=== PATIENT | female | born 1970 | race Caucasian/White ===

== ENCOUNTER 2020-03-26 13:47 | Emergency (ER) | payer MEDICARE, MEDICAID, SELFPAY ==
--- NOTE | ~2020-03-26 | XR_ITS ---
EXAMINATION: XR foot RT min 3V DATE: 03/26/2020 14:11 INDICATION: Pain at the right third-fifth toes post injury 2 weeks prior TECHNIQUE: Dorsoplantar, two oblique and lateral views of the right foot were obtained. COMPARISON: None. FINDINGS: Nondisplaced extra-articular fracture across the proximal metadiaphyseal region of the right fifth pr oximal phalanx. Alignment remains essentially anatomic. No other fractures identified. Joint spaces a ppear relatively preserved. Small plantar calcaneal spur. IMPRESSION: 1. Nondisplaced extra articular fracture at the proximal shaft of the right fifth proximal phalanx. Reviewed, dictated and finalized at location A. IMPRESSION: 1. Nondisplaced extra articular fracture at the proximal shaft of the right fif th proximal phalanx.
[2020-03-26 13:58] VITALS: BP 118/88; PULSE 86; RESP 16; TEMP 37.1; O2SAT 99
--- NOTE | 2020-03-26 14:39 | ED.LOWEXIN ---
HPI - Extremity Injury (Lower) General Chief Complaint: Extremity Injury, Lower Stated Complaint: right foot pain Time Seen by Provider: 03/26/20 14:30 Source: patient and RN notes reviewed Mode of arrival: ambulatory Limitations: no limitations History of Present Illness HPI Narrative: Patient presents today complaining of right third through fifth toe pain. 2 weeks ago she kicked something at home and was having pain. 3 days ago she kicked something again on and heard a crack with increased pain. Currently rates her pain 12/09 and has tried no [id number]-[id number] interventions at home prior to arrival. Denies numbness or tingling in the foot or toes. Pain increases with weightbearing. States she is unable to wear shoe due to pain. MD complaint: foot injury Related Data Home Medications Medication Instructions Recorded Confirmed amitriptyline 25 mg tablet 25 mg PO ONCE 04/07/19 03/26/20 cetirizine 10 mg capsule 10 mg PO DAILY 04/07/19 03/26/20 mometasone 50 mcg/actuation nasal 2 spray NASAL DAILY 04/07/19 03/26/20 spray topiramate 50 mg tablet 50 mg PO BID 04/07/19 03/26/20 trazodone 50 mg tablet 50 mg PO BID 04/07/19 03/26/20 Allergies Allergy/AdvReac Type Severity Reaction Status Date / Time clavulanic acid Allergy Mild TONGUE Verified 04/09/19 09:04 SWELLING, NAUSEA AND VOMITING coconut Allergy Unknown Hives / Verified 04/09/19 09:04 Red Face Penicillins Allergy Swelling Verified 03/26/20 13:57 of Lip/Tongue/Throat Review of Systems Review of Systems: Narrative: CONSTITUTIONAL: Denies body aches, fever, chills, or sweats. EYES: Denies visual changes, redness, or discharge. ENT: Denies rhinorrhea, congestion, sore throat, or otalgia. CARDIOVASCULAR: Denies chest pain, palpitations, or edema. RESPIRATORY: Denies cough or dyspnea. GASTROINTESTINAL: Denies abdominal pain, nausea, vomiting, or diarrhea. GENITOURINARY: Denies dysuria or hematuria. SKIN: Denies rash, itching, or wounds. MUSCULOSKELETAL: Denies back pain, or myalgia. + Right toe pain and swelling NEUROLOGIC: Denies headache, numbness, tingling, or weakness. PSYCH: Denies depression or anxiety. [facility] Past Medical History Medical History (Updated 03/26/20 @ 14:46 by Brunilda Borges, [employer]INTED [employer]ARD PANELS PLATER, ) Hopper's palsy Migraines PTSD (post-traumatic stress disorder) Surgical History Surgical History (Updated 09/30/19 @ 10:02 by Raul Sampson) H/O sinus surgery Family History Family History (Updated 04/09/18 @ 10:55 by DOCTOR UNKNOWN) Mother Family history of malignant neoplasm of breast in first degree relative Father Malignant neoplasm of prostate Social History Social History (Updated 04/09/19 @ 09:02 by Zaira Orozco, [facility]) Smoking status: Former smoker Comments At time of signature, I have reviewed and agree with nursing past medical, surgical, social and family history unless otherwise noted. Please see nursing chart for further information. There is no relevant family history pertinent to the presenting complaint Exam Narrative: Exam Narrative: GENERAL: Well-appearing, well-nourished, and in no acute distress. HEAD: Normocephalic, atraumatic. EYES: EOMI. No redness or drainage. Conjunctivae normal. ENT: Mucous membranes pink and moist. NECK: Normal AROM. CHEST: No respiratory distress. EXTREMITIES: Tenderness to right toes 3 through 5 with mild edema. Tenderness extends to the distal one third of the metatarsals as well. No tenderness to the remainder of the foot. Distal sensation intact. Capillary refill normal. Pedal pulse normal. Decreased range of motion to affected toes due to pain. SKIN: Warm, dry, no rash. Capillary refill normal. Normal skin turgor. NEURO: No focal deficits. Alert and oriented x3. Guarded gait PSYCH: Normal affect. No signs of depression or anxiety. Course Vital Signs Vital signs: Vital Signs Temperature 98.7 F 03/26/20 13:58 Pulse Rate
== END 2020-03-26 14:53 | disposition home or self-care (01) ==
PROVIDERS: Emergency Provider Nurse Practitioner; PCP Family Medicine
DX: S92.514A Nondisplaced fracture of proximal phalanx of right lesser toe(s), initial encounter for closed fracture (principal); W22.8XXA Striking against or struck by other objects, initial encounter; S90.31XA Contusion of right foot, initial encounter; Z87.891 Personal history of nicotine dependence; F43.10 Post-traumatic stress disorder, unspecified
CPT/HCPCS: 73630; 99214; G0463

== ENCOUNTER 2020-05-30 15:19 | Outpatient (CLI) | payer MEDICARE, MEDICAID, SELFPAY ==
[2020-05-30 16:58] LABS: Alanine Aminotransferase 64 U/L (4-35); Albumin Level 4.3 g/dL (3.5-5.1); Alkaline Phosphatase 92 U/L (38-126); Anion Gap 9 mmol/L (8-16); Aspartate Amino Transferase 33 U/L (14-36); Bilirubin,Total 0.2 mg/dL (0.2-1.3); Blood Urea Nitrogen 13 mg/dL (7-17); Calcium 8.7 mg/dL (8.4-10.2); Carbon Dioxide 22 mmol/L (22-30); Chloride 110 mmol/L (98-107); Cholesterol 274 mg/dL (0-200); Estimated Glomerular Filt Rate 58; Glucose 111 mg/dL (65-105); LDL Cholesterol Direct 112 mg/dL; Potassium 3.8 mmol/L (3.4-5.0); Sodium 141 mmol/L (137-145)
[2020-05-30 17:27] LABS: Triglycerides 945 mg/dL (<150)
== END 2020-05-30 15:20 | disposition home or self-care (01) ==
LOC: ANHLAB 15:21
PROVIDERS: PCP Internal Medicine; Visit Provider Internal Medicine
DX: R53.83 Other fatigue (principal); Z13.6 Encounter for screening for cardiovascular disorders
CPT/HCPCS: 36415; 80053; 80061; 84443

== ENCOUNTER 2020-06-03 10:19 | Outpatient (CLI) | payer MEDICARE, MEDICAID, SELFPAY ==
--- NOTE | ~2020-06-03 | US_ITS ---
EXAMINATION: US right upper quadrant DATE: 06/03/2020 10:47 INDICATION: Right upper quadrant pain TECHNIQUE: Multiple grayscale and Doppler ultrasound images of the abdomen were obtained. COMPARISON: None available FINDINGS: The head and body of the pancreas are normal. The pancreatic tail is obscured by bowel gas. The liver demonstrates increased echogenicity, heterogenous echotexture, and decreased through trans mission. No surface nodularity. Normal hepatopetal flow in the main portal vein. The gallbladder is c ontracted but appears normal with no abnormal wall thickening, pericholecystic fluid or stones. The n ormal common bile duct measures 5 mm. There was no sonographic Burger sign. IMPRESSION: 1. Diffuse hepatic steatosis. Reviewed, dictated and finalized at location A. UNTS OFFICER
== END 2020-06-03 10:20 | disposition home or self-care (01) ==
PROVIDERS: PCP Internal Medicine; Visit Provider Internal Medicine
DX: R10.11 Right upper quadrant pain (principal); K76.0 Fatty (change of) liver, not elsewhere classified
CPT/HCPCS: 76705

== ENCOUNTER 2020-06-30 09:44 | Outpatient (CLI) | payer MEDICARE, MEDICAID, SELFPAY ==
[2020-06-30 10:45] LABS: Alanine Aminotransferase 100 U/L (4-35); Albumin Level 4.3 g/dL (3.5-5.1); Alkaline Phosphatase 83 U/L (38-126); Aspartate Amino Transferase 39 U/L (14-36); Bilirubin,Total 0.4 mg/dL (0.2-1.3); Cholesterol 203 mg/dL (0-200); HDL Direct 33 mg/dL; Triglycerides 475 mg/dL (<150)
[2020-06-30 10:59] LABS: LDL Cholesterol Direct 108 mg/dL
== END 2020-06-30 09:45 | disposition home or self-care (01) ==
LOC: ANHLAB 09:47
PROVIDERS: PCP Internal Medicine; Visit Provider Internal Medicine
DX: Z79.899 Other long term (current) drug therapy (principal); E78.5 Hyperlipidemia, unspecified
CPT/HCPCS: 36415; 80061; 80076

== ENCOUNTER 2020-08-01 08:30 | Outpatient (CLI) | payer MEDICARE, MEDICAID, SELFPAY ==
[2020-08-01 09:01] LABS: Alanine Aminotransferase 57 U/L (4-35); Albumin Level 4.2 g/dL (3.5-5.1); Alkaline Phosphatase 84 U/L (38-126); Aspartate Amino Transferase 29 U/L (14-36); Bilirubin,Total 0.3 mg/dL (0.2-1.3)
[2020-08-01 11:58] LABS: Cholesterol 191 mg/dL (0-200); HDL Direct 31 mg/dL; Triglycerides 366 mg/dL (<150)
[2020-08-01 12:09] LABS: LDL Cholesterol Direct 100 mg/dL
== END 2020-08-01 08:31 | disposition home or self-care (01) ==
PROVIDERS: PCP Internal Medicine; Referring Provider Psychiatry & Neurology Neurology; Visit Provider Internal Medicine
DX: R79.89 Other specified abnormal findings of blood chemistry (principal)
CPT/HCPCS: 36415; 80061; 80076

== ENCOUNTER 2020-10-18 11:41 | Outpatient (CLI) | payer MEDICARE, MEDICAID, SELFPAY ==
[2020-10-18 13:18] LABS: Alanine Aminotransferase 69 U/L (4-35); Albumin Level 4.5 g/dL (3.5-5.1); Alkaline Phosphatase 101 U/L (38-126); Anion Gap 8 mmol/L (8-16); Aspartate Amino Transferase 45 U/L (14-36); Bilirubin,Total 0.3 mg/dL (0.2-1.3); Blood Urea Nitrogen 11 mg/dL (7-17); Calcium 9.2 mg/dL (8.4-10.2); Carbon Dioxide 22 mmol/L (22-30); Chloride 112 mmol/L (98-107); Cholesterol 225 mg/dL (0-200); Estimated Glomerular Filt Rate 52; Glucose 95 mg/dL (65-105); HDL Direct 39 mg/dL; Sodium 142 mmol/L (137-145); Triglycerides 346 mg/dL (<150)
[2020-10-18 13:29] LABS: LDL Cholesterol Direct 115 mg/dL
[2020-10-18 13:31] LABS: Hemoglobin A1C 5.9 % (<5.7)
[2020-10-18 13:36] LABS: Vitamin D 25 Hydroxy 36.7 ng/mL
== END 2020-10-18 11:42 | disposition home or self-care (01) ==
PROVIDERS: PCP Internal Medicine; Visit Provider Nurse Practitioner
DX: G47.00 Insomnia, unspecified (principal); E78.2 Mixed hyperlipidemia; Z13.21 Encounter for screening for nutritional disorder; R63.1 Polydipsia; Z79.899 Other long term (current) drug therapy
CPT/HCPCS: 36415; 80053; 80061; 82306; 83036; 84443

== ENCOUNTER 2020-11-07 12:17 | Outpatient (CLI) | payer MEDICARE, MEDICAID, SELFPAY ==
[2020-11-07 13:17] LABS: Cholesterol 203 mg/dL (0-200); HDL Direct 29 mg/dL; Triglycerides 455 mg/dL (<150)
[2020-11-07 13:28] LABS: LDL Cholesterol Direct 94 mg/dL
== END 2020-11-07 12:18 | disposition home or self-care (01) ==
PROVIDERS: PCP Internal Medicine; Referring Provider Nurse Practitioner; Visit Provider Obstetrics & Gynecology
DX: E78.2 Mixed hyperlipidemia (principal)
CPT/HCPCS: 36415; 80061

== ENCOUNTER 2020-12-22 13:19 | Outpatient (CLI) | payer MEDICARE, MEDICAID, SELFPAY ==
[2020-12-22 14:21] LABS: Cholesterol 196 mg/dL (0-200); HDL Direct 32 mg/dL; Triglycerides 371 mg/dL (<150)
[2020-12-22 14:32] LABS: LDL Cholesterol Direct 76 mg/dL
== END 2020-12-22 13:20 | disposition home or self-care (01) ==
PROVIDERS: PCP Internal Medicine; Visit Provider Internal Medicine
DX: E78.5 Hyperlipidemia, unspecified (principal)
CPT/HCPCS: 36415; 80061

== ENCOUNTER 2021-01-01 01:05 | Day surgery (SDC) | payer MEDICARE, MEDICAID, SELFPAY ==
[2020-12-14 13:40] VITALS: BMI 28.2
--- NOTE | 2021-01-01 08:18 | WPDANESEPPF ---
Anes - Initial Pre Proc Eval Procedure: Operation Date: 01/01/21 09:00 Proposed Procedures p Esophagogastroduodenoscopy - Hugo Alvarado MD Date/Time: 01/01/21 08:18 Surgeon: Hugo Alvarado MD Pre Op Diagnosis: GERD Patient Data Age: 50 Gender: F Height: 1.65 m Weight: 77 kg Allergies Allergy/AdvReac Type Severity Reaction Status Date / Time amoxicillin [From Augmentin] Allergy Severe Anaphylaxis Verified 01/01/21 08:18 Penicillins Allergy Severe Anaphylaxis Verified 01/01/21 08:18 clavulanic acid Allergy Mild TONGUE Verified 01/01/21 08:18 SWELLING, NAUSEA AND VOMITING coconut Allergy Mild Hives / Verified 01/01/21 08:18 Red Face Home Medications Medication Instructions Recorded Confirmed Type amitriptyline 25 mg tablet 25 mg PO QHS #90 tablet 09/06/20 12/14/20 Rx trazodone 50 mg tablet 50 mg PO BID PRN 10/18/20 12/14/20 History omeprazole 40 mg capsule,delayed 40 mg PO DAILY #30 cap 10/26/20 12/14/20 Rx release icosapent ethyl 1 gram capsule 2 g PO BID #360 cap 11/07/20 12/14/20 Rx topiramate 50 mg tablet See Rx Instructions .ROUTE 11/13/20 12/14/20 Rx .COMPLEX #270 tablet atorvastatin 20 mg tablet 20 mg PO DAILY #90 tablet 11/27/20 12/14/20 Rx Breo Ellipta 1 inh INHALATION DAILY 12/14/20 12/14/20 History fexofenadine [Lilli] 60 mg PO DAILY PRN 12/14/20 12/14/20 History hydrocodone-acetaminophen 1 tablet PO Q8H PRN 12/14/20 12/14/20 History albuterol sulfate 90 mcg/actuation See Rx Instructions .ROUTE 12/21/20 Rx aerosol inhaler .COMPLEX #54 gram Patient hx anesthesia problems: none Family hx anesthesia problems: none PMFSH Past Medical History Medical History Hopper's palsy Closed blow-out fracture of left orbital floor Migraines Missed x1 PTSD (post-traumatic stress disorder) Vaginal delivery x1 Surgical History Surgical History H/O sinus surgery x3 History of dilation and curettage History of facial surgery left orbital blowout x3 History of knee surgery left, x2 Hx of eye surgery x2 Previous section x1 Family History Family History Mother Family history of malignant neoplasm of breast in first degree relative Hypertension Father Malignant neoplasm of prostate Diabetes mellitus Hypertension Other Asthma Social History Social History Smoking packs per day: 0.5 Smoking cigarettes per day: 10.0 Years smoked: 20 Smoking pack-years: 10.00 Smoking status: Former smoker Tobacco type: cigarettes Second hand tobacco smoke exposure: Yes Alcohol intake: current Alcohol use details: Socially Substance use: never Living arrangements: with family Spiritual care concerns: No Anes - Eval Final PreProcedure Day of Procedure 01/01/21 08:18 Patient weight: overweight Heart: regular rate and rhythm Lungs: clear to auscultation Airway: Mallampati scale class III Neurological: alert and oriented Last oral intake: >/= 8 hours ASA classification: III Emergent: no Anesthetic plan: proceed Anesthesia type and monitoring: general GIVS and standard monitoring Informed Consent: The patient's anesthetic plan and its attendant risks and benefits were discussed with the patient/family/POA. Questions were solicited and answers provided to the satisfaction of the patient/family/POA.
[2021-01-01 08:19] VITALS: BP 105/65; PULSE 65; RESP 16; TEMP 36.3; O2SAT 99
[2021-01-01] MEDS: LACTATED RINGERS 1,000 ML 150 ML IV CONT (08:29)
--- NOTE | 2021-01-01 08:55 | PM.HPGS ---
History of Present Illness History of Present Illness Consent: Risks, benefits, and alternatives have been discussed and questions answered. Patient agrees to proceed with procedure. Chief complaint: GERD Narrative: Harriett Jackson is a 50 year old female here with intermittent epigastric pain, using omeprazole for over 6 months with some relief, had ultrasound that showed fatty liver. Using hydrocodone prn for migraines. Review of Systems Constitutional: Constitutional: Denies headache(s) and Denies weakness Eyes: Eyes: Denies blurry vision ENT: Reports Normal hearing present, Denies headache(s) and Denies neck pain Cardiovascular: Cardiovascular: Denies chest pain and Denies dyspnea Respiratory: Respiratory: Denies dyspnea Gastrointestinal: Gastrointestinal: Reports no additional gastrointestinal complaints Genitourinary: Genitourinary: Denies dysuria Musculoskeletal: Musculoskeletal: Denies neck pain Integumentary/Breasts: Skin/Breast: Denies dry skin Neurologic: Reports Normal hearing present, Denies headache(s) and Denies weakness Psychiatric: Psychiatric: Denies anxiety Endocrine: Endocrine: Denies change in body appearance Hematologic/Lymphatic: Hematologic/Lymphatic: Denies easy bleeding Allergic/Immunologic: Allergic/Immunologic: Denies urticaria PMFSH Past Medical History Medical History (Updated 01/01/21 @ 08:56 by Hugo Alvarado MD) Hopper's palsy Closed blow-out fracture of left orbital floor Epigastric pain Fatty liver Migraines Missed x1 PTSD (post-traumatic stress disorder) Vaginal delivery x1 Surgical History Surgical History H/O sinus surgery x3 History of dilation and curettage History of facial surgery left orbital blowout x3 History of knee surgery left, x2 Hx of eye surgery x2 Previous section x1 Family History Family History Mother Family history of malignant neoplasm of breast in first degree relative Hypertension Father Malignant neoplasm of prostate Diabetes mellitus Hypertension Other Asthma Social History Social History Smoking packs per day: 0.5 Smoking cigarettes per day: 10.0 Years smoked: 20 Smoking pack-years: 10.00 Smoking status: Former smoker Tobacco type: cigarettes Second hand tobacco smoke exposure: Yes Alcohol intake: current Alcohol use details: Socially Substance use: never Living arrangements: with family Spiritual care concerns: No Meds Home Medications and Allergies Home Medications Medication Instructions Recorded Confirmed Type amitriptyline 25 mg tablet 25 mg PO QHS #90 tablet 09/06/20 01/01/21 Rx trazodone 50 mg tablet 50 mg PO BID PRN 10/18/20 01/01/21 History omeprazole 40 mg capsule,delayed 40 mg PO DAILY #30 cap 10/26/20 01/01/21 Rx release icosapent ethyl 1 gram capsule 2 g PO BID #360 cap 11/07/20 01/01/21 Rx topiramate 50 mg tablet See Rx Instructions .ROUTE 11/13/20 01/01/21 Rx .COMPLEX #270 tablet atorvastatin 20 mg tablet 20 mg PO DAILY #90 tablet 11/27/20 01/01/21 Rx Breo Ellipta 1 inh INHALATION DAILY 12/14/20 01/01/21 History fexofenadine [Lilli] 60 mg PO DAILY PRN 12/14/20 01/01/21 History hydrocodone-acetaminophen 1 tablet PO Q8H PRN 12/14/20 01/01/21 History albuterol sulfate 90 mcg/actuation See Rx Instructions .ROUTE 12/21/20 01/01/21 Rx aerosol inhaler .COMPLEX #54 gram Allergies Allergy/AdvReac Type Severity Reaction Status Date / Time amoxicillin [From Augmentin] Allergy Severe Anaphylaxis Verified 01/01/21 08:18 Penicillins Allergy Severe Anaphylaxis Verified 01/01/21 08:18 clavulanic acid Allergy Mild TONGUE Verified 01/01/21 08:18 SWELLING, NAUSEA AND VOMITING coconut Allergy Mild Hives / Verified 01/01/21 08:18 Red Face Vital Sig
[2021-01-01] MEDS: BENZOCAINE (*SP) 60 ML SPRAY CAN (HURRICAINE) 1 SPRAY MUCOUS MEM (08:56)
[2021-01-01 09:10] VITALS: BP 110/65; PULSE 71; O2SAT 99
[2021-01-01 09:20] VITALS: BP 111/63; PULSE 80; O2SAT 99
[2021-01-01 09:30] VITALS: BP 118/76; PULSE 82; O2SAT 99
== END 2021-01-01 09:37 | disposition home or self-care (01) ==
PROVIDERS: PCP Internal Medicine; Visit Provider Internal Medicine Gastroenterology
PROC: 0DJ08ZZ Inspection of Upper Intestinal Tract, Via Natural or Artificial Opening Endoscopic (ICD-10-PCS; CPT 43235; principal; 2021-01-01 09:00)
DX: K29.50 Unspecified chronic gastritis without bleeding (principal); K76.0 Fatty (change of) liver, not elsewhere classified; F43.10 Post-traumatic stress disorder, unspecified; Z79.51 Long term (current) use of inhaled steroids; Z87.891 Personal history of nicotine dependence
CPT/HCPCS: 43239; 88305; J2001; J2704; J7120

== ENCOUNTER 2021-01-29 09:42 | Outpatient (CLI) | payer MEDICARE, MEDICAID, SELFPAY ==
--- NOTE | 2021-01-29 12:39 | P.PCNPFT_ITS ---
PFT Procedure Performed PFT Procedure Performed Spirometry with Pre/Post Bronchodilator Plethysmography (Lung Vol) Diffusing Cap (DLCO) Flow Vol Loop PFT Interpretation This is a pulmonary function test with pre and post-bronchodilator spirometry, plethysmography and diffusing capacity. The test was performed and results interpreted in accordance with the 2019 and 2005 ATS/ERS Task Force guidelines respectively using the Global Lung Function Initiative-2012 reference equations. Patient demonstrated good effort and cooperation. Reproducibility criteria were met. The quality of the pre bronchodilator spirometry maneuver was Grade B and post bronchodilator spirometry maneuver was Grade C. Findings: Spirometry: the contour of the inspiratory and expiratory flow tracing are normal. The pre bronchodilator FVC is 3.10 L, 88% predicted. The pre bronchodilator FEV1 is 2.22 L, 79% predicted. The FEV1: FVC ratio 72%. The post bronchodilator FVC is 3.07 L, representing 1% decrease. The post bronchodilator FEV1 is 2.38 L, representing a 7% increase. Plethysmography: The total lung capacity is 3.93 L, 76% predicted. The functional residual capacity is 1.96 L, 67% predicted. The residual volume is 0.83 L, 44% predicted. Diffusion capacity: The absolute diffusion capacity is 14.7, 64% predicted. T he diffusing capacity corrected for alveolar volume is 3.48, 77% predicted. Impression: There is a mild restrictive ventilatory abnormality with a normal FEV1. The spirometry is normal without evidence of an obstructive abnormality. There is no significant improvement after inhaling a single dose of albuterol. The absolute diffusing capacity is mildly decreased and normalizes when corrected for alveolar volume. There are no prior studies for comparison
== END 2021-01-29 09:43 | disposition home or self-care (01) ==
PROVIDERS: PCP Internal Medicine; Visit Provider Nurse Practitioner Family
DX: R06.02 Shortness of breath (principal); R94.2 Abnormal results of pulmonary function studies
CPT/HCPCS: 94060; 94726; 94729

== ENCOUNTER 2021-04-24 08:18 | Outpatient (CLI) | payer OTHER, SELFPAY ==
[2021-04-24 11:14] LABS: Alanine Aminotransferase 50 U/L (4-35); Albumin Level 4.5 g/dL (3.5-5.1); Alkaline Phosphatase 95 U/L (38-126); Anion Gap 9 mmol/L (8-16); Aspartate Amino Transferase 30 U/L (14-36); Bilirubin,Total 0.3 mg/dL (0.2-1.3); Blood Urea Nitrogen 11 mg/dL (7-17); Calcium 9.5 mg/dL (8.4-10.2); Carbon Dioxide 21 mmol/L (22-30); Chloride 111 mmol/L (98-107); Cholesterol 220 mg/dL (0-200); Estimated Glomerular Filt Rate 58; Glucose 101 mg/dL (65-110); HDL Direct 31 mg/dL; Potassium 4.1 mmol/L (3.4-5.0); Sodium 141 mmol/L (137-145); Triglycerides 321 mg/dL (<150)
[2021-04-24 11:25] LABS: LDL Cholesterol Direct 134 mg/dL
[2021-04-24 12:15] LABS: Vitamin D 25 Hydroxy 45.9 ng/mL
== END 2021-04-24 08:19 | disposition home or self-care (01) ==
PROVIDERS: PCP Internal Medicine; Visit Provider Nurse Practitioner
DX: G47.00 Insomnia, unspecified (principal); E78.2 Mixed hyperlipidemia; Z13.21 Encounter for screening for nutritional disorder; Z79.899 Other long term (current) drug therapy
CPT/HCPCS: 36415; 80053; 80061; 82306; 84443

== ENCOUNTER 2021-06-11 08:03 | Outpatient (CLI) | payer MEDICARE, MEDICAID, SELFPAY ==
--- NOTE | ~2021-06-11 | NM_ITS ---
EXAMINATION: NM stress w perf spect multi DATE: 06/11/2021 10:47 INDICATION: Chest pain. TECHNIQUE: Rest images were obtained following intravenous administration of 9.44 mCi Tc99m tetrofosm in (Myoview). The patient performed an exercise activity. At peak exercise, 31.2 mCi Tc99m tetrofosmi n (Myoview) was administered intravenously, and stress images were obtained. Data was reconstructed i nto short axis and horizontal and vertical long axis SPECT images. Gated SPECT images were also obtai shayy. COMPARISON: None. FINDINGS: There is no definite reversible or fixed perfusion abnormality to suggest ischemia or infar ction. There is no segmental wall motion abnormality. Left ventricular ejection fraction measures 7 0%. IMPRESSION: 1. No definite ischemia or infarct. 2. Normal left ventricular ejection fraction measuring 70%. Reviewed, dictated and finalized at location B. TRIMMER
--- NOTE | ~2021-06-11 | XR_ITS ---
EXAMINATION: XR chest 2V EXAM DATE: 06/11/2021 08:28 INDICATION: R07.9 - Chest pain, unspecified . TECHNIQUE: Frontal and lateral projections of the chest obtained and reviewed. Comparison is made to prior examination from 05/26/2013. FINDINGS: Bibasilar linear scarring. The lungs are otherwise clear. There are no pleural effusions. The cardiomediastinal silhouette is within normal limits. There is no pneumothorax suspected. The bones and soft tissues are unremarkable. IMPRESSION: No acute cardiopulmonary findings. Reviewed, dictated and finalized at location A. 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
--- NOTE | 2021-06-11 08:23 | EST_ITS ---
Patient Info Name: Harriett Jackson Age: 50 years : 1970 Gender: Female Ht: 65 in Wt: 180 lbs BSA: 1.96 m2 HR: 67 bpm BP: 100 / 66 mmHg Heart Rhythm: Sinus Rhythm Exam Date: 06/11/2021 9:17 AM Exam Location: [facility] Stress Patient Status: Outpatient Admit Date: 06/11/2021 Staff Ordering Physician: Gagan Sanchez DO Attending Provider: Gagan Sanchez DO Exercise Technologist: Carley Marina CT Exercise Physician: Caden Rodriguez DO Exam Type: CA stress cali w NM Study Info Indications R07.9 - Chest pain, unspecified A regadenoson stress test was performed. Summary 1. 1. Negative lexiscan stress test for ischemic ST changes by ECG criteria. 2. 2. Stable hemodynamics throughout the test. 3. 3. Nuclear scan to follow and will be reported separately. Please correlate with it. 4. 4. Patient informed of the above results. Protocol: Lexiscan Stress ECG Details Stage: REST Duration (min): 1 min : 4 sec HR (bpm): 66 SBP (mmHg): 100 DBP (mmHg): 66 Stage: REST Duration (min): 7 min : 20 sec HR (bpm): 66 SBP (mmHg): 100 DBP (mmHg): 66 Stage: STAGE 1 Duration (min): 1 min : 0 sec HR (bpm): 102 SBP (mmHg): 109 DBP (mmHg): 68 Stage: RECOVERY Duration (min): 1 min : 0 sec HR (bpm): 118 SBP (mmHg): 109 DBP (mmHg): 68 Stage: RECOVERY Duration (min): 2 min : 0 sec HR (bpm): 111 SBP (mmHg): 109 DBP (mmHg): 68 Stage: RECOVERY Duration (min): 3 min : 0 sec HR (bpm): 99 SBP (mmHg): 142 DBP (mmHg): 66 Stage: RECOVERY Duration (min): 3 min : 2 sec HR (bpm): 99 SBP (mmHg): 142 DBP (mmHg): 66 Rest HR: 66 bpm Peak HR: 119 bpm Rest Sys BP: 100 mmHg Peak Sys BP: 142 mmHg Max Pred HR: 168 bpm % Max Pred HR: 71 % Target HR: 143 bpm Max RPP: 16,898 bpm*mmHg Termination Reason: Completed protocol Cardiac Symptoms: Shortness of breath Total Time: 1 min : 0 sec Rest [place] BP: 66 mmHg Peak [place] BP: 66 mmHg Total Dose: 0.4 mg Resting ECG Sinus rhythm, IRBBB. Stress ECG No ST changes. Arrhythmias None. Report Signatures
== END 2021-06-11 08:04 | disposition home or self-care (01) ==
LOC: ANHCARD 08:11
PROVIDERS: PCP Internal Medicine; Visit Provider Internal Medicine
DX: R07.9 Chest pain, unspecified (principal)
CPT/HCPCS: 71046; 78452; 93017; A9502; J2785

== ENCOUNTER → 2021-08-04 00:07 | Outpatient (CLI) | payer MEDICARE, MEDICAID, SELFPAY ==
[2021-08-04 11:45] LABS: Influenza A QL RT-PCR Negative (Negative); Influenza B QL RT-PCR Negative (Negative); SARS-CoV-2 RNA PCR Negative
== END ==
PROVIDERS: PCP Internal Medicine; Visit Provider Internal Medicine
DX: R68.89 Other general symptoms and signs (principal); Z20.822 Contact with and (suspected) exposure to COVID-19
CPT/HCPCS: 87502; C9803; U0003; U0005

== ENCOUNTER 2021-08-21 08:07 | Outpatient (CLI) | payer MEDICARE, MEDICAID, SELFPAY ==
--- NOTE | 2021-08-23 12:54 | WPDHOMESLEEP ---
Sleep Study - Home Unattended Date of Study: 08/21/21 Ordering Provider: George Buitrago APRN Interpreting Provider: Jaquelin Villarreal, DO Home Sleep Study Type: Apnea Link Air Height: 1.65 m Weight: 79.379 kg Body Mass Index: 29.1 Neck Circumference (inches): 15.5 [place]: 14 Reason for Sleep Study Unrefreshing sleep, daytime hypersomnia Sleep History The patient is a 51-year-old female with Hopper's palsy, migraines, PTSD, hyperlipidemia, prediabetes and tobacco abuse that had a home sleep test ordered by her outdoor adventure guides. The patient had a home sleep study in June 2016 that showed an AHI of 3.4. The patient constantly awakens from sleep short of breath. She frequently awakens at night with heartburn, belching or cough. She occasionally snores but is rarely loud enough that others complain. She constantly has trouble sleeping when she has a cold. She constantly wakes up gasping for air throughout the night. She constantly has breathing problems at night observed by herself or others. She rarely sweats excessively at night. She constantly has heart palpitations or irregular heartbeats during the night. She frequently falls asleep during the day but never while driving. She denies cataplexy. She rarely feels unable to move when waking up or falling asleep. She occasionally experiences vivid dreamlike scenes upon awakening or falling asleep. She frequently feels afraid of going to sleep. She constantly has nightmares. Frequently remembers her dreams. She frequently has thoughts racing through her mind. She rarely feels sad or depressed. She constantly has anxiety. She frequently has muscular tension. She frequently notices parts of her body jerk. She constantly kicks during the night. She frequently has crawling and aching feelings in her legs and occasionally has leg pain during the night. She occasionally grinds her teeth during sleep and occasionally has morning jaw pain. She has constant bothered by pain during the day and constantly awakened by pain during the night. She constantly wakes up feeling stiff in the morning with sore achy muscles. She constantly wakes up with pain in the neck, spine or other joints. She goes to bed between 8 and 10:00 p.m. on weekdays and weekends. It takes her 5-10 minutes to fall asleep. She wakes up every few hours. When she awakens, she will use the restroom, get a drink of water and let her dog out. She wakes up between 4 and 5:00 a.m. on both weekdays and weekends. She typically gets 4-5 hours of sleep per night. She will stay in bed for 5 minutes after waking up in the morning. She currently lives with her 17-year-old son. She does not consume any caffeinated beverages within 2 hours of bedtime. She does not engage in physical exercise before bedtime. He will read watch television before falling asleep. She does not take naps in the afternoon or the evening. She drinks 1 cup of caffeinated beverage every morning. She rarely drinks alcohol. She quit smoking. She denies recreational drug use. [facility] Past Medical History Medical History Hopper's palsy Closed blow-out fracture of left orbital floor Epigastric pain Fatty liver Migraines Missed x1 PTSD (post-traumatic stress disorder) Vaginal delivery x1 Surgical History Surgical History H/O sinus surgery x3 History of bilateral tubal ligation History of dilation and curettage History of facial surgery left orbital blowout x3 History of knee surgery left, x2 Hx of eye surgery x2 Previous section x1 Family History Family History Mother Family history of malignant neoplasm of breast in first degree relative Hypertension Father Malignant neoplasm of prostate Diabetes mellitus Hypertension Other Asthma Social H
[2021-08-23 13:03] VITALS: BMI 29.1
== END 2021-08-22 10:35 | disposition home or self-care (01) ==
PROVIDERS: PCP Internal Medicine; Visit Provider Nurse Practitioner Family
DX: G47.9 Sleep disorder, unspecified (principal)
CPT/HCPCS: 95806

== ENCOUNTER 2021-10-12 07:59 | Outpatient (CLI) | payer MEDICARE, MEDICAID, SELFPAY ==
--- NOTE | ~2021-10-12 | MM_ITS ---
EXAMINATION: MM screening radha BI w paula HISTORY: Screening TECHNIQUE: Craniocaudal and mediolateral oblique 3-D tomosynthesis images were obtained and synthetic 2-D images were generated. CAD analysis was submitted and interpreted. COMPARISON: No prior mammogram is available for comparison at this institution. BREAST PARENCHYMAL COMPOSITION: Breast composed of scattered areas of fibroglandular density FINDINGS: There are focal asymmetries in the upper outer quadrant of the right breast. There are no s uspicious left mammographic abnormalities to suggest malignancy. IMPRESSION: 1. Right breast asymmetries, upper outer quadrant. 2. Additional mammographic views and possible breast ultrasound are recommended. BI-RADS Category 0: Incomplete: Needs additional imaging evaluation. Reviewed, dictated and finalized at location A. IMPRESSION: 1. Right breast asymmetries, upper outer quadrant. 2. Additional mammographic views and possible breast ultrasound are recommended . BI-RADS Category 0: Incomplete: Needs additional imaging evaluation.
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
== END 2021-10-12 08:00 | disposition home or self-care (01) ==
PROVIDERS: PCP Internal Medicine; Visit Provider Obstetrics & Gynecology
DX: Z12.31 Encounter for screening mammogram for malignant neoplasm of breast (principal); Z78.0 Asymptomatic menopausal state; R92.8 Other abnormal and inconclusive findings on diagnostic imaging of breast; M85.88 Other specified disorders of bone density and structure, other site; M85.851 Other specified disorders of bone density and structure, right thigh; M85.852 Other specified disorders of bone density and structure, left thigh
CPT/HCPCS: 77063; 77067; 77080

== ENCOUNTER 2021-11-05 10:41 | Outpatient (CLI) | payer MEDICARE, MEDICAID, SELFPAY ==
--- NOTE | ~2021-11-05 | MMUS_ITS ---
EXAMINATION: MM diagnostic radha RT w paula, US breast RT limited HISTORY: Focal asymmetry of the right breast screening mammogram TECHNIQUE: Additional 3-D tomosynthesis images of the right breast were performed and synthetic 2-D i mages were generated. CAD analysis was submitted and interpreted. High resolution limited right breas t ultrasound was performed. COMPARISON: 10/12/2021 BREAST PARENCHYMAL COMPOSITION: There are scattered areas of fibroglandular density. FINDINGS: MAMMOGRAPHIC FINDINGS: The right breast focal asymmetry described on screening mammogram disperses with spot compression. No suspicious mass, calcification, or architectural distortion are identified. ULTRASOUND: There is no evidence of focal abnormal solid or cystic mass in the vicinity of the mammographic findi ng in question. IMPRESSION: 1. No mammographic or sonographic evidence of malignancy. 2. Recommend routine screening mammography in one year. BI-RADS Category 1: Negative Reviewed, dictated and finalized at location A. IMPRESSION: 1. No mammographic or sonographic evidence of malignancy. 2. Recommend routine screening mammography in one year. BI-RADS Category 1: Negative
[2021-11-05 11:12] LABS: Alanine Aminotransferase 51 U/L (6-35); Albumin Level 4.2 g/dL (3.5-5.1); Alkaline Phosphatase 104 U/L (38-126); Anion Gap 7 mmol/L (8-16); Aspartate Amino Transferase 28 U/L (14-36); Bilirubin,Total 0.3 mg/dL (0.2-1.3); Blood Urea Nitrogen 12 mg/dL (7-17); Calcium 8.6 mg/dL (8.4-10.2); Carbon Dioxide 22 mmol/L (22-30); Chloride 114 mmol/L (98-107); Cholesterol 178 mg/dL (0-200); Estimated Glomerular Filt Rate 58; Glucose 98 mg/dL (65-110); HDL Direct 33 mg/dL; Potassium 4.2 mmol/L (3.4-5.0); Sodium 143 mmol/L (137-145); Triglycerides 250 mg/dL (<150)
[2021-11-05 11:22] LABS: LDL Cholesterol Direct 84 mg/dL
== END 2021-11-05 10:42 | disposition home or self-care (01) ==
PROVIDERS: PCP Internal Medicine; Visit Provider Obstetrics & Gynecology
DX: E78.2 Mixed hyperlipidemia (principal); Z79.899 Other long term (current) drug therapy; R92.8 Other abnormal and inconclusive findings on diagnostic imaging of breast
CPT/HCPCS: 36415; 76642; 77061; 77065; 80053; 80061; G0279

== ENCOUNTER 2021-11-08 09:29 | Outpatient (CLI) | payer MEDICARE, MEDICAID, SELFPAY ==
[2021-11-08 11:54] LABS: Vitamin D 25 Hydroxy 40.9 ng/mL
== END 2021-11-08 09:30 | disposition home or self-care (01) ==
LOC: ANHLAB 09:31
PROVIDERS: PCP Internal Medicine; Visit Provider Obstetrics & Gynecology
DX: M85.80 Other specified disorders of bone density and structure, unspecified site (principal)
CPT/HCPCS: 36415; 82306

== ENCOUNTER 2022-02-19 08:07 | Outpatient (CLI) | payer MEDICARE, MEDICAID, SELFPAY ==
--- NOTE | 2022-02-19 11:00 | NEURO_ITS ---
Impression: # Complains of numbness in arms and legs. # Normal nerve conduction study in all extremities. # No Carpal Tunnel Syndrome or ulnar neuropathy. # Normal needle/EMG exam. # Clinical correlation recommended; Problem could be related to small fiber neuropathy. Nerve Conduction Studies Anti Sensory Summary Table Stim Site NR Peak (ms) P-T Amp (?V) Site1 Site2 Delta-P (ms) Dist (cm) Lazaro (m/s) Left Median Anti Sensory (2-3nd Digit) Wrist 2.7 71.3 Wrist 2-3nd Digit 2.7 14.0 52 Wrist 2.5 83.5 Wrist 2-3nd Digit 2.7 14.0 52 Right Median Anti Sensory (2-3nd Digit) Wrist 2.7 89.5 Wrist 2-3nd Digit 2.7 14.0 52 Wrist 2.7 92.0 Wrist 2-3nd Digit 2.7 14.0 52 Left Radial Anti Sensory (Base 1st Digit) Wrist 1.9 24.0 Wrist Base 1st Digit 1.9 0.0 Right Radial Anti Sensory (Base 1st Digit) Wrist 2.3 11.6 Wrist Base 1st Digit 2.3 0.0 Left Sup Fibular Anti Sensory (Ant Lat Mall) 14 cm 3.7 5.6 14 cm Ant Lat Mall 3.7 16.0 43 Right Sup Fibular Anti Sensory (Ant Lat Mall) 14 cm 3.8 4.7 14 cm Ant Lat Mall 3.8 16.0 42 Left Sural Anti Sensory (Lat Mall) Calf 4.0 43.0 Calf Lat Mall 4.0 16.0 40 Right Sural Anti Sensory (Lat Mall) Calf 4.3 12.9 Calf Lat Mall 4.3 18.0 42 Left Ulnar Anti Sensory (5th Digit) Wrist 2.2 82.5 Wrist 5th Digit 2.2 14.0 64 Right Ulnar Anti Sensory (5th Digit) Wrist 2.5 99.3 Wrist 5th Digit 2.5 14.0 56 Motor Summary Table Stim Site NR Onset (ms) O-P Amp (mV) Site1 Site2 Delta-0 (ms) Dist (cm) Lazaro (m/s) Left Median Motor (Abd Poll Brev) Wrist 3.0 2.3 Elbow Wrist 4.4 28.0 64 Elbow 7.4 6.9 Right Median Motor (Abd Poll Brev) Wrist 3.1 2.0 Elbow Wrist 4.3 25.0 58 Elbow 7.4 1.8 Left Peroneal Motor (Vastus Med) Ankle 4.1 1.5 Popit Ankle 9.0 38.0 42 Popit 13.1 1.2 Right Peroneal Motor (Vastus Med) Ankle 4.5 8.1 Popit Ankle 8.5 36.0 42 Popit 13.0 6.4 Left Tibial Motor (Abd Stoll Brev) Ankle 4.6 6.9 Knee Ankle 9.2 42.0 46 Knee 13.8 4.6 Right Tibial Motor (Abd Stoll Brev) Ankle 4.8 6.0 Knee Ankle 9.0 41.0 46 Knee 13.8 6.0 Left Ulnar Motor (Abd Dig Minimi) Wrist 2.6 5.7 A Elbow Wrist 4.4 26.0 59 A Elbow 7.0 5.2 Right Ulnar Motor (Abd Dig Minimi) Wrist 2.9 5.2 A Elbow Wrist 5.1 26.0 51 A Elbow 8.0 4.5 B Elbow Wrist 3.4 19.0 56 B Elbow 6.3 1.9 F Wave Studies NR F-Lat (ms) L-R F-Lat (ms) Left Median (Mrkrs) (Abd Poll Brev) 28.42 0.94 Right Median (Mrkrs) (Abd Poll Brev) 27.49 0.94 Left Peroneal (Mrkrs) (EDB) 52.89 0.43 Right Peroneal (Mrkrs) (EDB) 53.32 0.43 Left Tibial (Mrkrs) (Abd Hallucis) 54.73 0.08 Right Tibial (Mrkrs) (Abd Hallucis) 54.81 0.08 Left Ulnar (Mrkrs) (Abd Dig Min) 26.96 0.00 Right Ulnar (Mrkrs) (Abd Dig Min) 26.96 0.00 EMG Side Muscle Nerve Root Ins Act Fibs Amp Dur Recrt Comment Right 1stDorInt Ulnar C8-T1 Nml Nml Nml Nml Nml Right Ext Indicis Radial (Post Int) C7-8 Nml Nml Nml Nml Nml Right Ext Digitorum Radial (Post Int) C7-8 Nml Nml Nml Nml Nml Right BrachioRad Radial C5-6 Nml Nml Nml Nml Nml Right PronatorTeres Median C6-7 Nml Nml Nml Nml Nml Right Abd Poll Brev Median C8-T1 Nm
== END 2022-02-19 08:08 | disposition home or self-care (01) ==
LOC: ANHNEURO 08:21
PROVIDERS: PCP Internal Medicine; Visit Provider Nurse Practitioner
DX: R20.2 Paresthesia of skin (principal)
CPT/HCPCS: 95886; 95913

== ENCOUNTER 2022-05-13 08:22 | Outpatient (CLI) | payer MEDICARE, MEDICAID, SELFPAY ==
[2022-05-13 09:16] LABS: Alanine Aminotransferase 46 U/L (6-35); Albumin Level 4.7 g/dL (3.5-5.1); Alkaline Phosphatase 92 U/L (38-126); Anion Gap 9 mmol/L (8-16); Aspartate Amino Transferase 30 U/L (14-36); Bilirubin,Total 0.5 mg/dL (0.2-1.3); Blood Urea Nitrogen 14 mg/dL (7-17); Calcium 8.6 mg/dL (8.4-10.2); Carbon Dioxide 22 mmol/L (22-30); Chloride 112 mmol/L (98-107); Cholesterol 186 mg/dL (0-200); Estimated Glomerular Filt Rate 52; Glucose 102 mg/dL (65-110); HDL Direct 36 mg/dL; Potassium 4.3 mmol/L (3.4-5.0); Sodium 143 mmol/L (137-145); Triglycerides 206 mg/dL (<150)
[2022-05-13 09:27] LABS: LDL Cholesterol Direct 98 mg/dL
== END 2022-05-13 08:23 | disposition home or self-care (01) ==
PROVIDERS: PCP Internal Medicine; Visit Provider Nurse Practitioner
DX: E78.2 Mixed hyperlipidemia (principal)
CPT/HCPCS: 36415; 80053; 80061

== ENCOUNTER 2022-06-11 08:49 | Outpatient (CLI) | payer MEDICARE, MEDICAID, SELFPAY | END 2022-06-11 08:50 | disposition home or self-care (01) | LOC: ANHAUDIO 08:51 | PROVIDERS: PCP Internal Medicine; Visit Provider Nurse Practitioner | DX: H93.19 Tinnitus, unspecified ear (principal); H90.3 Sensorineural hearing loss, bilateral | CPT/HCPCS: 92557; 92567 ==

== ENCOUNTER 2022-07-23 11:11 | Outpatient (CLI) | payer MEDICARE, MEDICAID, SELFPAY ==
--- NOTE | ~2022-07-23 | XR_ITS ---
XR foot RT standing 2V 07/23/2022 11:59 Indication: Joint pain. Chronic use of medication. Procedure: 2 views right foot Comparison: 03/26/2020 Findings: No fracture, subluxation or dislocation. Lisfranc joint intact. There is a degenerative cooper caneal enthesophyte at the plantar surface. No focal soft tissue abnormality. No foreign bodies. Impression: 1: No significant bone or joint abnormality. Reviewed, dictated and finalized at location L. TERINTELLIGENCE AGENT Impression: 1: No significant bone or joint abnormality.
--- NOTE | ~2022-07-23 | XR_ITS ---
XR lumbar spine min 4V 07/23/2022 11:59 Indication: Chronic usage of medication. Chronic joint pain. Procedure: 5 views lumbar spine Comparison: 12/13/2016 Findings: Vertebral body heights are maintained. Normal lumbar lordosis. No fracture, subluxation or dislocation. No evidence for spondylolisthesis. Pedicles intact. There is calcification overlying the left kidney, most likely renal stone. There are pelvic phleboliths. There are tubal ligation rings. Impression: 1: No significant abnormality of the lumbar spine. 2: Probable left nephrolithiasis. Reviewed, dictated and finalized at location L. TER HELPER Impression: 1: No significant abnormality of the lumbar spine. 2: Probable left nephrolithiasis.
--- NOTE | ~2022-07-23 | XR_ITS ---
XR knee LT 3V 07/23/2022 11:59 Indication: Joint pain. Chronic usage of medication. Procedure: 3 views left knee Comparison: No prior studies for comparison. Findings: There is anatomic alignment. No significant joint space narrowing. No erosive changes. No f racture or traumatic malalignment. There is no significant joint effusion. No foreign bodies. Impression: 1: No significant bone or joint abnormality. Reviewed, dictated and finalized at location L. WAGON DRIVER Impression: 1: No significant bone or joint abnormality.
--- NOTE | ~2022-07-23 | XR_ITS ---
XR foot LT standing 2V 07/23/2022 11:59 Indication: Chronic usage of medication. Chronic joint pain. Procedure: 2 views left foot Comparison: No prior studies for comparison. Findings: Lisfranc joint intact. Small degenerative calcaneal enthesophyte at the plantar surface. No fracture, subluxation or dislocation. No significant degenerative change. No soft tissue abnormality . Impression: 1: No significant bone or joint abnormality. Reviewed, dictated and finalized at location L. DONTICS DENTIST Impression: 1: No significant bone or joint abnormality.
--- NOTE | ~2022-07-23 | XR_ITS ---
XR knee RT 3V 07/23/2022 11:59 Indication: Joint pain. Chronic usage of medication. Procedure: 3 views right knee Comparison: 10/01/2016 Findings: There is anatomic alignment. No significant joint space narrowing. No erosive changes. No f racture or traumatic malalignment. There is no significant joint effusion. No foreign bodies. Impression: 1: No significant bone or joint abnormality. Reviewed, dictated and finalized at location L. MUTUEL CLERK Impression: 1: No significant bone or joint abnormality.
--- NOTE | ~2022-07-23 | XR_ITS ---
XR_CERV2-3V_CR 07/23/2022 11:59 Indication: Chronic use of medication. Joint pain. Procedure: 3 view cervical spine Comparison: No prior studies for comparison. Findings: There is mild multilevel facet hypertrophy. Vertebral body heights are maintained. Normal c ervical lordosis. No prevertebral soft tissue abnormality. Odontoid process is normal. Lateral masses normally aligned. Lung apices are normal. No erosive changes. Impression: 1: Mild cervical spondylosis. Reviewed, dictated and finalized at location L. ST RESOURCE SPECIALIST Impression: 1: Mild cervical spondylosis.
--- NOTE | ~2022-07-23 | XR_ITS ---
XR hand BI arthritis min 3V 07/23/2022 11:59 Indication: Joint pain. Chronic medication usage. Procedure: 4 views of each hand Comparison: 01/14/2016 Findings: There is anatomic alignment. No significant osteoarthritis or erosive change. No focal soft tissue abnormality. No foreign bodies. Impression: 1: No significant bone or joint abnormality. Reviewed, dictated and finalized at location L. ORY REPRESENTATIVE Impression: 1: No significant bone or joint abnormality.
[2022-07-23 11:57] LABS: Hematocrit 43.1 % (37.0-47.0); Hemoglobin 14.4 g/dL (12.0-15.0); Mean Corpuscular HGB Conc 33.4 g/dl (32-36); Mean Corpuscular Hemoglobin 30.3 pg (26-34); Mean Corpuscular Volume 90.7 fl (80-100); Mean Platelet Volume 9.3 fl (7.4-10.4); Platelet Count Result 262 k/mm3 (150-375); Red Blood Count 4.75 M/mm3 (4.2-5.4); Red Cell Distribution Width 13.7 % (11.5-14.5); White Blood Count 6.4 K/mm3 (4.5-10.0)
[2022-07-23 12:10] LABS: Rheumatoid Factor < 8.6 IU/ML (<12)
[2022-07-23 12:11] LABS: Alanine Aminotransferase 108 U/L (6-35); Albumin Level 4.6 g/dL (3.5-5.1); Alkaline Phosphatase 102 U/L (38-126); Anion Gap 9 mmol/L (8-16); Aspartate Amino Transferase 44 U/L (14-36); Bilirubin,Total 0.6 mg/dL (0.2-1.3); Blood Urea Nitrogen 14 mg/dL (7-17); CRP < 0.5 mg/dL (<1.0); Calcium 8.9 mg/dL (8.4-10.2); Carbon Dioxide 24 mmol/L (22-30); Chloride 110 mmol/L (98-107); Estimated Glomerular Filt Rate 58; Glucose 111 mg/dL (65-110); Potassium 4.1 mmol/L (3.4-5.0); Sodium 143 mmol/L (137-145)
[2022-07-23 12:26] LABS: Vitamin D 25 Hydroxy 43.4 ng/mL
[2022-07-23 12:56] LABS: Erythrocyte Sedimentation Rate 16 mm/hr (0-20)
[2022-07-25 13:21] LABS: SM Antibody <1.0; SM/RNP Antibody <1.0; SS-A <1.0; SS-B <1.0
[2022-07-26 14:33] LABS: Angiotensin Converting Enzyme 58 U/L (9-67)
[2022-07-28 11:51] LABS: Anti Cyclic Citrullinated Pept <16 Units (<20)
== END 2022-07-23 11:12 | disposition home or self-care (01) ==
PROVIDERS: PCP Internal Medicine; Visit Provider Internal Medicine
DX: M25.9 Joint disorder, unspecified (principal); R20.2 Paresthesia of skin; M25.50 Pain in unspecified joint; M19.90 Unspecified osteoarthritis, unspecified site; H91.90 Unspecified hearing loss, unspecified ear; R20.0 Anesthesia of skin; Z71.89 Other specified counseling; Z79.899 Other long term (current) drug therapy; M43.02 Spondylolysis, cervical region
CPT/HCPCS: 36415; 72040; 72110; 73130; 73562; 73620; 80053; 82164; 82306; 85027; 85652; 86038; 86140; 86200; 86225; 86235; 86430

== ENCOUNTER 2022-11-19 12:48 | Outpatient (CLI) | payer MEDICARE, MEDICAID, SELFPAY ==
[2022-11-19 13:31] LABS: Alanine Aminotransferase 52 U/L (6-35); Albumin Level 4.5 g/dL (3.5-5.1); Alkaline Phosphatase 82 U/L (38-126); Anion Gap 10 mmol/L (8-16); Aspartate Amino Transferase 31 U/L (14-36); Bilirubin,Total 0.5 mg/dL (0.2-1.3); Blood Urea Nitrogen 14 mg/dL (7-17); Calcium 8.8 mg/dL (8.4-10.2); Carbon Dioxide 21 mmol/L (22-30); Chloride 111 mmol/L (98-107); Cholesterol 183 mg/dL (0-200); Estimated Glomerular Filt Rate 52; Glucose 98 mg/dL (65-110); HDL Direct 38 mg/dL; Potassium 3.8 mmol/L (3.4-5.0); Sodium 142 mmol/L (137-145); Triglycerides 257 mg/dL (<150)
[2022-11-19 13:42] LABS: LDL Cholesterol Direct 99 mg/dL
== END 2022-11-19 12:49 | disposition home or self-care (01) ==
PROVIDERS: PCP Nurse Practitioner; Visit Provider Nurse Practitioner
DX: E78.5 Hyperlipidemia, unspecified (principal); Z79.899 Other long term (current) drug therapy
CPT/HCPCS: 36415; 80053; 80061; 84443

== ENCOUNTER 2023-04-04 15:05 | Outpatient (CLI) | payer MEDICARE, MEDICAID, SELFPAY ==
--- NOTE | ~2023-04-04 | US_ITS ---
EXAMINATION: US pelvic complete w TV DATE: 04/04/2023 16:44 INDICATION: Postmenopausal bleeding Comparison:No prior studies for comparison. TECHNIQUE: Multiple transabdominal and endovaginal sonographic images of the pelvis performed. FINDINGS: The uterus measures 4.5 x 1.9 x 1.7 cm. The endometrial complex measures 6 mm. Endometrium is not well delineated, although somewhat heterogeneous. The right ovary measures 1.6 x 0.9 x 1.7 cm and the left ovary measures 1.5 x 1.1 x 1.7 cm. There ar e small follicles in each ovary. Normal doppler signal in both ovaries. There is no free fluid in the pelvis. There are no abnormal masses seen on either side. IMPRESSION: 1. Thickened endomtrial complex. The differential diagnosis includes endometrial hyperplasia, polyp a nd carcinoma. Biopsy is recommended. Reviewed, dictated and finalized at location A. IMPRESSION: 1. Thickened endomtrial complex. The differential diagnosis includes endometria l hyperplasia, polyp and carcinoma. Biopsy is recommended.
--- NOTE | ~2023-04-04 | CT_ITS ---
EXAMINATION: CT sinus wo con DATE: 04/04/2023 15:28 INDICATION: Chronic sinusitis TECHNIQUE: Computed tomography (CT) of the paranasal sinuses was performed without intravenous contra st. The dose-length product was 295.03 mGy-cm. Automated exposure control and iterative reconstructio n technique were employed. COMPARISON: None FINDINGS: There is mild mucosal thickening of the maxillary sinuses. Mastoids are pneumatized. There are surgical changes of the inferior wall of the left orbit. There are changes of bilateral ostiomeat al resection. No significant mucoperiosteal reaction. No acute bone or joint abnormality. IMPRESSION: 1. Mild maxillary sinus disease. Reviewed, dictated and finalized at location A.
== END 2023-04-04 15:06 | disposition home or self-care (01) ==
PROVIDERS: PCP Family Medicine; Referring Provider Otolaryngology; Visit Provider Obstetrics & Gynecology
DX: J32.9 Chronic sinusitis, unspecified (principal)
CPT/HCPCS: 70486; 76830; 76856

== ENCOUNTER 2023-05-19 08:24 | Outpatient (CLI) | payer MEDICARE, MEDICAID, SELFPAY ==
--- NOTE | ~2023-05-19 | MR_ITS ---
MRI of the brain Clinical History: Left-sided weakness Technique: Axial and sagittal T1-weighted images were acquired. These were followed by axial T2-weigh simone, diffusion weighted, gradient, and FLAIR images. Following intravenous administration of 15 cc Mu ltiHance gadolinium, T1-weighted fat-sat imaging was performed in the axial and coronal planes. Findings: There is no abnormal signal in the brain parenchyma. No acute infarct, intracranial hemorrh age, or mass lesion identified. Ventricles and subarachnoid spaces are unremarkable. Orbits are unremarkable. Paranasal sinuses and m astoid air cells are clear. Major intracranial flow voids are intact. Sagittal midline structures are intact. No abnormal postcontrast enhancement identified. IMPRESSION: No significant abnormality seen. Reviewed, dictated and finalized at location . E OPERATIONS ASSOCIATE
== END 2023-05-19 08:25 | disposition home or self-care (01) ==
PROVIDERS: PCP Family Medicine; Visit Provider Student in an Organized Health Care Education/Training Program
DX: R53.1 Weakness (principal)
CPT/HCPCS: 70553; A9577

== ENCOUNTER 2023-06-03 11:21 | Outpatient (CLI) | payer MEDICARE, MEDICAID, SELFPAY ==
[2023-06-03 12:05] LABS: Alanine Aminotransferase 138 U/L (6-35); Albumin Level 3.9 g/dL (3.5-5.1); Alkaline Phosphatase 97 U/L (38-126); Anion Gap 8 mmol/L (8-16); Aspartate Amino Transferase 66 U/L (14-36); Bilirubin,Total 0.5 mg/dL (0.2-1.3); Blood Urea Nitrogen 9 mg/dL (7-17); Calcium 8.1 mg/dL (8.4-10.2); Carbon Dioxide 24 mmol/L (22-30); Chloride 108 mmol/L (98-107); Cholesterol 183 mg/dL (0-200); Estimated Glomerular Filt Rate > 60; Glucose 160 mg/dL (65-110); HDL Direct 43 mg/dL; Potassium 3.6 mmol/L (3.4-5.0); Sodium 140 mmol/L (137-145); Triglycerides 321 mg/dL (<150)
[2023-06-03 12:10] LABS: Hemoglobin A1C 5.7 % (<5.7)
[2023-06-03 12:16] LABS: LDL Cholesterol Direct 103 mg/dL
== END 2023-06-03 11:22 | disposition home or self-care (01) ==
LOC: ANHLAB 11:23
PROVIDERS: PCP Family Medicine; Visit Provider Nurse Practitioner Family
DX: E78.2 Mixed hyperlipidemia (principal); Z68.29 Body mass index [BMI] 29.0-29.9, adult; Z79.899 Other long term (current) drug therapy
CPT/HCPCS: 36415; 80053; 80061; 83036

== ENCOUNTER 2023-06-19 08:05 | Outpatient (CLI) | payer MEDICARE, MEDICAID, SELFPAY ==
--- NOTE | ~2023-06-19 | US_ITS ---
US abdomen limited INDICATION: Fatty liver PROCEDURE: Realtime right upper abdominal ultrasound. COMPARISON: No prior studies for comparison. FINDINGS: The pancreas is normal without focal mass or pancreatic ductal dilation. Liver echotexture is increased, consistent with fatty infiltration. There is normal directional flow in the portal ve in. There are gallstones, largest measuring 5 mm. Common bile duct measures 5 mm. No sonographic Burger 's sign. IMPRESSION: 1: Gallbladder polyps measuring 5 mm or less. 2: Fatty infiltration of the liver. Reviewed, dictated and finalized at location A. RWEAR WELTER
== END 2023-06-19 08:06 | disposition home or self-care (01) ==
PROVIDERS: PCP Family Medicine; Visit Provider Family Medicine
DX: K76.0 Fatty (change of) liver, not elsewhere classified (principal)
CPT/HCPCS: 76705

== ENCOUNTER 2023-08-28 09:51 | Outpatient (CLI) | payer MEDICARE, MEDICAID, SELFPAY ==
--- NOTE | ~2023-08-28 | MM_ITS ---
EXAMINATION: MM screening radha BI w paula HISTORY: Screening mammogram TECHNIQUE: Craniocaudal and mediolateral oblique 3-D tomosynthesis images were obtained and synthetic 2-D images were generated. CAD analysis was submitted and interpreted. COMPARISON: 11/05/2021 diagnostic right mammogram and limited right breast ultrasound examination, repo rted negative 10/12/2021 bilateral screening mammogram BREAST PARENCHYMAL COMPOSITION: There are scattered areas of fibroglandular density. FINDINGS: There is no evidence of suspicious mass, calcification, or architectural distortion to sugg est malignancy in either breast. There has been no suspicious interval change. IMPRESSION: 1. No mammographic evidence of malignancy. 2. Recommend routine screening mammography in one year. BI-RADS Category 1: Negative Reviewed, dictated and finalized at location A.
== END 2023-08-28 09:52 | disposition home or self-care (01) ==
PROVIDERS: PCP Family Medicine; Visit Provider Obstetrics & Gynecology
DX: Z12.31 Encounter for screening mammogram for malignant neoplasm of breast (principal)
CPT/HCPCS: 77063; 77067

== ENCOUNTER 2023-09-24 14:46 | Outpatient (CLI) | payer MEDICARE, MEDICAID, SELFPAY ==
--- NOTE | ~2023-09-24 | DEXA_ITS ---
Bone Density Report Name: RODERICK OLEA Age: 53 Sex: Female Ethnicity: White Date of : 1970 Indication: osteopenia; height loss; cancer; asthma or emphysema; Referring Provider: DANA DAILY Study: Bone densitometry was performed. Exam Date: September 24, 2023 Accession number: [id number] Bone Density: Region BMD T-score Z-score Classification AP Spine(L1-L4) 0.847 -1.8 -0.7 Osteopenia Femoral Neck (Left) 0.641 -1.9 -0.8 Osteopenia Total Hip (Left) 0.875 -0.6 0.1 Normal Femoral Neck (Right) 0.651 -1.8 -0.7 Osteopenia Total Hip (Right) 0.896 -0.4 0.3 Normal Total Hip Mean 0.885 -0.5 0.2 Normal World Health Organization criteria for BMD impression classify patients as: Normal (T-score at or above -1.0), Osteopenia (T-score between -1.0 and -2.5), or Osteoporosis (T-score at or below -2.5). 10-year Fracture Risk(1): Major Osteoporotic Fracture 7.1% Hip Fracture 0.7% Reported Risk Factors: [place] (), Neck BMD=0.641, BMI=30.0 (1) FRAX(R) Version 3.08. Fracture probability calculated for an untreated patient. Fracture probability may be lower if the patient has received treatment. Previous Exams: Region Exam Age BMD T-score BMD Change BMD Change Date g/cm2 vs Baseline vs Previous AP Spine (L1-L4) 09/24/2023 53 0.847 -1.8 -0.033 (-3.8%) -0.033 (-3.8%) 10/12/2021 51 0.880 -1.5 Total Hip(Left) 09/24/2023 53 0.875 -0.6 -0.017 (-1.9%) -0.017 (-1.9%) 10/12/2021 51 0.892 -0.4 Total Hip(Right) 09/24/2023 53 0.896 -0.4 -0.026 (-2.8%) -0.026 (-2.8%) 10/12/2021 51 0.922 -0.2 *Denotes significance at 95% confidence level, LSC for AP Spine = 0.022 g/cm2, LSC for Total Hip = 0.027 g/cm2 Clinical Information Provided by Patient: Has the following medical conditions: Asthma or Emphysema, Cancer Patient maximum height was 65 Menopause Age: 35 Does not regularly consume dairy products Drinks caffeinated beverages Onset of menses at age 11 Number of children 2 Impression: The patient has low bone mass, based on the Left Femoral Neck T-score. The patient has an estimated ten-year risk of hip fracture of 0.7% and an estimated ten-year risk of major fracture of 7.1%, based on the WHO FRAX algorithm. The BMD for the AP Spine (L1-L4) decreased, changing by -3.8% since the last DXA exam. Discussion: BONE DENSITY IS LOW AT ONE OR MORE SKELETAL SITES. This patient's lowest T-score is low at one or more
== END 2023-09-24 14:47 | disposition home or self-care (01) ==
LOC: ANHIMG 14:47
PROVIDERS: PCP Family Medicine; Visit Provider Family Medicine
DX: Z78.0 Asymptomatic menopausal state (principal); M85.88 Other specified disorders of bone density and structure, other site; M85.852 Other specified disorders of bone density and structure, left thigh; M85.851 Other specified disorders of bone density and structure, right thigh
CPT/HCPCS: 77080

== ENCOUNTER 2023-12-03 11:39 | Outpatient (CLI) | payer MEDICARE, MEDICAID, SELFPAY ==
[2023-12-03 12:23] LABS: Hematocrit 37.4 % (37.0-47.0); Hemoglobin 12.4 g/dL (12.0-15.0); Mean Corpuscular HGB Conc 33.2 g/dl (32-36); Mean Corpuscular Hemoglobin 29.7 pg (26-34); Mean Corpuscular Volume 89.7 fl (80-100); Mean Platelet Volume 9.2 fl (7.4-10.4); Platelet Count Result 281 k/mm3 (150-375); Red Blood Count 4.17 M/mm3 (4.2-5.4); Red Cell Distribution Width 13.2 % (11.5-14.5); White Blood Count 5.2 K/mm3 (4.5-10.0)
[2023-12-03 12:24] LABS: Alanine Aminotransferase 23 U/L (6-35); Albumin Level 4.3 g/dL (3.5-5.1); Alkaline Phosphatase 100 U/L (38-126); Anion Gap 11 mmol/L (4-12); Aspartate Amino Transferase 24 U/L (14-36); Bilirubin,Total 0.4 mg/dL (0.2-1.3); Blood Urea Nitrogen 9 mg/dL (7-17); Calcium 8.9 mg/dL (8.4-10.2); Carbon Dioxide 21 mmol/L (22-30); Chloride 111 mmol/L (98-107); Cholesterol 171 mg/dL (0-200); Estimated Glomerular Filt Rate 58; Glucose 90 mg/dL (65-110); HDL Direct 32 mg/dL; Potassium 3.7 mmol/L (3.4-5.0); Sodium 143 mmol/L (137-145); Triglycerides 267 mg/dL (<150)
[2023-12-03 12:34] LABS: LDL Cholesterol Direct 99 mg/dL
[2023-12-03 12:44] LABS: Hemoglobin A1C 5.5 % (<5.7)
[2023-12-03 13:30] LABS: Folic Acid 4.2 ng/mL (2.76->20)
[2023-12-05 13:17] LABS: Homocysteine 15.7 umol/L (<10.4)
[2023-12-05 14:24] LABS: SS-A <1.0 NEG AI (<1.0 NEG); SS-B <1.0 NEG AI (<1.0 NEG)
[2023-12-07 11:29] LABS: Vitamin B1 <6 nmol/L (8-30)
[2023-12-07 15:09] LABS: Vitamin B6 4.2 ng/mL (2.1-21.7)
[2023-12-09 14:09] LABS: Immunofixation, Serum Normal pattern.
== END 2023-12-03 11:40 | disposition home or self-care (01) ==
LOC: ANHLAB 11:46
PROVIDERS: PCP Family Medicine; Referring Provider Family Medicine; Visit Provider Student in an Organized Health Care Education/Training Program
DX: G62.9 Polyneuropathy, unspecified (principal); Z79.899 Other long term (current) drug therapy; G47.9 Sleep disorder, unspecified; D06.9 Carcinoma in situ of cervix, unspecified; E66.9 Obesity, unspecified; E78.2 Mixed hyperlipidemia; F32.A Depression, unspecified; F41.9 Anxiety disorder, unspecified; H90.3 Sensorineural hearing loss, bilateral; H93.19 Tinnitus, unspecified ear; J32.9 Chronic sinusitis, unspecified; K21.9 Gastro-esophageal reflux disease without esophagitis; M25.50 Pain in unspecified joint; M85.80 Other specified disorders of bone density and structure, unspecified site; R20.2 Paresthesia of skin; R76.8 Other specified abnormal immunological findings in serum; Z00.00 Encounter for general adult medical examination without abnormal findings; Z13.6 Encounter for screening for cardiovascular disorders
CPT/HCPCS: 36415; 80053; 80061; 82607; 82746; 83036; 83090; 84207; 84425; 84443; 85027; 86038; 86039; 86235; 86334; 86335

== ENCOUNTER 2024-06-04 08:25 | Outpatient (CLI) | payer MEDICARE, MEDICAID, SELFPAY ==
[2024-06-04 08:48] LABS: Hematocrit 40.5 % (37.0-47.0); Hemoglobin 13.6 g/dL (12.0-15.0); Mean Corpuscular HGB Conc 33.6 g/dl (32-36); Mean Corpuscular Hemoglobin 30.8 pg (26-34); Mean Corpuscular Volume 91.6 fl (80-100); Mean Platelet Volume 9.1 fl (7.4-10.4); Platelet Count Result 227 k/mm3 (150-375); Red Blood Count 4.42 M/mm3 (4.2-5.4); Red Cell Distribution Width 13.3 % (11.5-14.5)
[2024-06-04 09:35] LABS: Alanine Aminotransferase 75 U/L (6-35); Albumin Level 4.3 g/dL (3.5-5.1); Alkaline Phosphatase 80 U/L (38-126); Anion Gap 2 mmol/L (4-12); Aspartate Amino Transferase 41 U/L (14-36); Bilirubin,Total 0.4 mg/dL (0.2-1.3); Blood Urea Nitrogen 13 mg/dL (7-17); Calcium 8.7 mg/dL (8.4-10.2); Carbon Dioxide 23 mmol/L (22-30); Chloride 114 mmol/L (98-107); Cholesterol 197 mg/dL (0-200); Estimated Glomerular Filt Rate > 60; Glucose 90 mg/dL (65-110); HDL Direct 39 mg/dL; Potassium 4.1 mmol/L (3.4-5.0); Sodium 139 mmol/L (137-145); Triglycerides 284 mg/dL (<150)
[2024-06-04 09:46] LABS: LDL Cholesterol Direct 105 mg/dL
== END 2024-06-04 08:26 | disposition home or self-care (01) ==
PROVIDERS: PCP Family Medicine; Visit Provider Family Medicine
DX: Z90.710 Acquired absence of both cervix and uterus (principal); G62.9 Polyneuropathy, unspecified; D06.9 Carcinoma in situ of cervix, unspecified; J45.909 Unspecified asthma, uncomplicated; Z13.6 Encounter for screening for cardiovascular disorders
CPT/HCPCS: 36415; 80053; 80061; 85027

== ENCOUNTER 2024-06-22 12:42 | Outpatient (CLI) | payer MEDICARE, MEDICAID, SELFPAY ==
--- NOTE | ~2024-06-22 | CT_ITS ---
EXAMINATION: CT sinus wo con DATE: 06/22/2024 13:00 INDICATION: Cough. TECHNIQUE: Computed tomography (CT) of the paranasal sinuses was performed without intravenous contra st. The dose-length product was 278.02 mGy-cm. Automated exposure control and iterative reconstructio n technique were employed. COMPARISON: CT dated 04/04/2023 FINDINGS: There is mild mucosal thickening of the ethmoid and right frontal sinus. There are surgical changes of the inferior wall of the left orbit. There is mild mucosal thickening of the left maxilla ry sinus. Mastoids are pneumatized. There are surgical changes of the ostiomeatal units bilaterally. No air-fluid levels. No significant mucoperiosteal reaction. IMPRESSION: 1. Mild sinus disease of the left maxillary, ethmoid and right frontal sinuses. Reviewed, dictated and finalized at location A. MA CENTER TECHNICIAN
== END 2024-06-22 12:43 | disposition home or self-care (01) ==
LOC: ANHIMG 12:44
PROVIDERS: PCP Otolaryngology; Visit Provider Otolaryngology
DX: R05.9 Cough, unspecified (principal); J01.01 Acute recurrent maxillary sinusitis; S02.32XA Fracture of orbital floor, left side, initial encounter for closed fracture; X58.XXXA Exposure to other specified factors, initial encounter; J32.0 Chronic maxillary sinusitis; J32.2 Chronic ethmoidal sinusitis; J32.1 Chronic frontal sinusitis
CPT/HCPCS: 70486

== ENCOUNTER 2024-10-30 09:14 | Outpatient (CLI) | payer MEDICARE, MEDICAID, SELFPAY ==
--- NOTE | ~2024-10-30 | MM_ITS ---
EXAMINATION: MM screening radha BI w paula HISTORY: Screening TECHNIQUE: Craniocaudal and mediolateral oblique 3-D tomosynthesis images were obtained and synthetic 2-D images were generated. CAD analysis was submitted and interpreted. COMPARISON: Comparison to multiple prior studies sequentially, with oldest reviewed study dated 10/12. BREAST PARENCHYMAL COMPOSITION: Not dense: There are scattered areas of fibroglandular density. FINDINGS: There is no evidence of suspicious mass, calcification, or architectural distortion to sugg est malignancy in either breast. There has been no suspicious interval change. IMPRESSION: 1. No mammographic evidence of malignancy. 2. Recommend routine screening mammography in one year. BI-RADS Category 1: Negative Reviewed, dictated and finalized at location A.
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
--- OUTSIDE RECORDS SUMMARY | 2024-10-30 09:18 | XMS_ITS | Clinical Summary ---
Author Organization [facility] Address [address] [place] [address] Care Team Providers Care Hypertrichologist Name Role Phone Santana Tellez MD Primary Care Provider [phone] [phone] Allergies Active Allergy Reactions Criticality Noted Date [...] rhinitis or allergies Just got prescription from supervisor smoke control and hasn't needed yet 06/04/19 24 Active [...] Pneumococcal Polysaccharide PPV23 02/28/2017 ZOSTER Recombinant 05/18/2021,03/05/2021 Surgical History Surgery Date Site/Laterality Comments TUBAL LIGATION 06/02/2005 - 06/01/2006 KNEE SURGERY 06/02/2018 - 06/01/2019 Left x2 ORBITAL RECONSTRUCTION Left x3, unknown date SINUS SURGERY N/A x3 Sinuses crushed in orbital blow out, unknown date EYE SURGERY Left x3, unknown date SECTION 06/02/2005 - 06/01/2006 EXAMINATION UNDER ANESTHESIA 06/20/2023 Fractional D&C, ecc, leep, cervical colposcopy Medical History Medical History Date Comments Hx Other Medical l orbital bloeo ut Hx Other Medical decompresmsion of the facial nerve Hx Other Medical left eye surgre y Hx Other Medical tubes tied Hx Other Medical Headache, migra ine Hypercholesteremia Diabetes mellitus (HCC) Headaches, cluster Asthma Sleep apnea Doesn't wear CPA P Family History Medical History Relation Name Comments Anesthesia problems Neg Hx Malig Hyperthermia Neg Hx Pseudochol deficiency Neg Hx Relation Name Status Comments Brother Alive Father Alive Mother Alive Social History Tobacco Use Types Packs/Day Years Used Date Smoking Tobacco: Former Cigarettes 0.2 20 1 2013 Passive Smoke Exposure: Past Smokeless Tobacco: [...] on file Legal Sex Female 1:35 AM AUTO MECHANIC SUPERVISOR Gender Identity Not on file Sexual Orientation Not on file Obstetrics History Para Term AB IAB SAB Ectopic Multiple Livin g Live Births 3 2 2 1 1 2 2 Date Outcome GA Total Labor Labor/2nd/3rd Weight Sex Type Anes PTL Rufina A1 A5 Name Clin Term Term SAB Last Filed Vital Signs Vital Sign Reading Time Taken Comments Blood Pressure 115/79 07/12/2024 8:30 AM AUTO MECHANIC SUPERVISOR Pulse 76 07/12/2024 8:30 AM AUTO MECHANIC SUPERVISOR Temperature 36.3 C (97.3 F) 07/12/2024 8:30 AM AUTO MECHANIC SUPERVISOR Respiratory Rate 16 07/12/2024 8:30 AM AUTO MECHANIC SUPERVISOR Oxygen Saturation 99% 07/12/2024 8:30 AM AUTO MECHANIC SUPERVISOR Inhaled Oxygen Concentration - - Weight 76.3 kg (168 lb 3.2 oz) 07/12/2024 8:30 A M AUTO MECHANIC SUPERVISOR Height 165.1 cm (5' 5) 07/12/2024 8:30 AM AUTO MECHANIC SUPERVISOR Body Mass Index 27.99 07/12/2024 8:30 AM AUTO MECHANIC SUPERVISOR Plan of Treatment Health Maintenance Due Date Last Done Comments Breast Cancer Screening-Mammogram 1968 Cervical Cancer Screening 1968 Colon Cancer Screening-Colonoscopy 1968 Depression Screening 1968 Hepatitis C Screening 1968 DTaP/Tdap/Td Vaccine (1 - Tdap) 08/18/1979 Hepatitis B Screening 1986 Regular Well Visit/Exam 18-64 1986 Pneumococcal vaccine <65 (2 of 2 - PCV) 02/28/2018 02/28/2017 Covid-19 Vaccine (2023-2 5 season) 2024 03/24/2023, 04/11/2022, 03/05/2021, Additional history exists Influenza Vaccine (Season Ended) 2025 03/24/2023, 04/11/2022, 03/05/2021, Additional history exists Zoster Vaccine Completed 05/18/2021, 03/05/2021 Insurance MEDICARE [place] MEDICARE [place] Advance Directives For more information, please contact: [phone] Documents on File Type Date Recorded Patient National Business Director Expl anation ADVANCE DIRECTIVE 10/30/2023 11:13 PM CECILIA R OF SUPERVISOR COKE HANDLING-FINANCIAL ADVANCE DIRECTIVE 10/30/2023 11:13 PM CECILIA R OF SUPERVISOR COKE HANDLING-MEDICAL * Full Code (Latest Code Status on File) Date Activated Date Inactivated Comments 11/07/2023 1:39 PM 11/12/2023 3:43 PM Care Teams Hypertrichologist Relationship Specialty Start Date End Date Santana Tellez MD PCP - General Family Practice 06/09/23
== END 2024-10-30 09:15 | disposition home or self-care (01) ==
PROVIDERS: PCP Family Medicine; Visit Provider Obstetrics & Gynecology
DX: Z12.31 Encounter for screening mammogram for malignant neoplasm of breast (principal)
CPT/HCPCS: 77063; 77067

== ENCOUNTER 2024-11-30 07:04 | Outpatient (CLI) | payer MEDICARE, MEDICAID, SELFPAY ==
--- OUTSIDE RECORDS SUMMARY | 2024-11-30 07:07 | XMS_ITS ---
Author Organization [facility] Address [address] [place] [address] Care Team Providers Care Signal Constructor Name Role Phone Santana Tellez MD Primary Care Provider [phone] [phone] Active Problems Problem Noted Date Diagnosed Date [...]
--- OUTSIDE RECORDS SUMMARY | 2024-11-30 07:07 | XMS_ITS | Referral Summary ---
Author Organization [facility] Address [address] [place] [address] Care Team Providers Care Rooms Director Name Role Phone Santana Tellez MD Primary Care Provider [phone] [phone] Allergies Active Allergy Reactions Criticality Noted Date [...] rhinitis or allergies Just got prescription from ticket printer and tagger and hasn't needed yet 06/04/19 24 Active [...] mouth daily 30 tablet 11 11/12/19 24 Active acetaminophen 500 mg capsuleIndications :Pain Take [...] on file Legal Sex Female 1:35 AM INSPECTOR MACHINED PARTS Gender Identity Not on file Sexual Orientation Not on file Last Filed Vital Signs Vital Sign Reading Time Taken Comments Blood Pressure 115/79 07/12/2024 8:30 AM INSPECTOR MACHINED PARTS Pulse 76 07/12/2024 8:30 AM INSPECTOR MACHINED PARTS Temperature 36.3 C (97.3 F) 07/12/2024 8:30 AM INSPECTOR MACHINED PARTS Respiratory Rate 16 07/12/2024 8:30 AM INSPECTOR MACHINED PARTS Oxygen Saturation 99% 07/12/2024 8:30 AM INSPECTOR MACHINED PARTS Inhaled Oxygen Concentration - - Weight 76.3 kg (168 lb 3.2 oz) 07/12/2024 8:30 A M INSPECTOR MACHINED PARTS Height 165.1 cm (5' 5) 07/12/2024 8:30 AM INSPECTOR MACHINED PARTS Body Mass Index 27.99 07/12/2024 8:30 AM INSPECTOR MACHINED PARTS Plan of Treatment Not on file Insurance MEDICARE [facility] MEDICARE [facility] IDPA Advance Directives For more information, please contact: [phone] Documents on File Type Date Recorded Patient Tractor Mechanic Apprentice Expl anation ADVANCE DIRECTIVE 10/30/2023 11:13 PM CECILIA R OF LIQUID YEAST SUPERVISOR-FINANCIAL ADVANCE DIRECTIVE 10/30/2023 11:13 PM CECILIA R OF LIQUID YEAST SUPERVISOR-MEDICAL * Full Code (Latest Code Status on File) Date Activated Date Inactivated Comments 11/07/2023 1:39 PM 11/12/2023 3:43 PM Care Teams Rooms Director Relationship Specialty Start Date End Date Santana Tellez MD PCP - General Family Practice 06/09/23
--- OUTSIDE RECORDS SUMMARY | 2024-11-30 07:07 | XMS_ITS | Clinical Summary ---
Author Organization [facility] Address [address] [place] [address] Care Team Providers Care Marketing Information Coordinator Name Role Phone Santana Tellez MD Primary Care Provider +1 [phone] Allergies Active Allergy Reactions Criticality Noted Date [...] rhinitis or allergies Just got prescription from driver education instructor and hasn't needed yet 06/04/19 24 Active [...] on file Legal Sex Female 1:35 AM LABOR CONCILIATOR Gender Identity Not on file Sexual Orientation [...] Comments Blood Pressure 115/79 07/12/2024 8:30 AM LABOR CONCILIATOR Pulse 76 07/12/2024 8:30 AM LABOR CONCILIATOR Temperature 36.3 C (97.3 F) 07/12/2024 8:30 AM LABOR CONCILIATOR Respiratory Rate 16 07/12/2024 8:30 AM LABOR CONCILIATOR Oxygen Saturation 99% 07/12/2024 8:30 AM LABOR CONCILIATOR Inhaled Oxygen Concentration - - Weight 76.3 kg (168 lb 3.2 oz) 07/12/2024 8:30 A M LABOR CONCILIATOR Height 165.1 cm (5' 5) 07/12/2024 8:30 AM LABOR CONCILIATOR Body Mass Index 27.99 07/12/2024 8:30 AM LABOR CONCILIATOR Plan of Treatment Health Maintenance Due Date [...] 05/18/2021, 03/05/2021 Insurance MEDICARE [place] MEDICARE [facility] [facility] Advance Directives For more information, please contact: [phone] Documents on File Type Date Recorded Patient Communications Maintainer Expl anation ADVANCE DIRECTIVE 10/30/2023 11:13 PM CECILIA R OF PATIENT INTAKE COORDINATOR-FINANCIAL ADVANCE DIRECTIVE 10/30/2023 11:13 PM CECILIA R OF PATIENT INTAKE COORDINATOR-MEDICAL * Full Code (Latest Code Status on File) Date Activated Date Inactivated Comments 11/07/2023 1:39 PM 11/12/2023 3:43 PM Care Teams Marketing Information Coordinator Relationship Specialty Start Date End Date Santana Tellez MD PCP - General Family Practice 06/09/23
--- OUTSIDE RECORDS SUMMARY | 2024-11-30 07:07 | XMS_ITS | Clinical Summary ---
Author Organization [facility] Address [facility] [place] [address] Care Team Providers Care Chargeback Analyst Name Role Phone Unavailable Primary Care Provider Unavailabl e Social History Tobacco Use Types Packs/Day Years Used Date Smoking Tobacco: Never Assessed Comments Unknown Sex and Gender Information Value Date Recorded Sex Assigned at Not on file Legal Sex Female 7:28 PM CDT Gender Identity Not on file Sexual Orientation Not on file Plan of Treatment Health Maintenance Due Date Last Done Comments Cervical Cancer Screening Pa p Smear (Age 30 to 64) Every 3 Years 1968 Colorectal Cancer Screening Colonoscopy (10 Years) 1968 Annual Physical 08/18/1971 Hepatitis C 1986 DTaP, Tdap and Td Vaccines ( 1 - Tdap) 08/18/1987 Hepatitis B Vaccines (1 of 3 - 19+ 3-dose series) 08/18/1987 Cervical Cancer Screening Pa p with HPV Testing (Age 30 to 64) Every 5 Years 1998 Cervical Cancer Screening with HPV 1998 Mammogram Screening 2008 Pneumococcal Vaccine: 50+ Ye ars (1 of 1 - PCV) 2018 Zoster Vaccines (1 of 2) 2018 COVID-19 Vaccine ( - 2023-2 5 season) 2024 Meningococcal B Vaccine Aged Out No l onger eligible based on patient's age to complete this topic Meningococcal Vaccine Aged Out No amanda oscar eligible based on patient's age to complete this topic RSV Immunizations Under 20 Months Aged Out No longer eligible based on patient's age to complete this topic
[2024-11-30 08:05] LABS: Hematocrit 41.3 % (37.0-47.0); Hemoglobin 13.4 g/dL (12.0-15.0); Mean Corpuscular HGB Conc 32.4 g/dl (32-36); Mean Corpuscular Hemoglobin 30.2 pg (26-34); Mean Corpuscular Volume 93.0 fl (80-100); Platelet Count Result 233 k/mm3 (150-375); Red Blood Count 4.44 M/mm3 (4.2-5.4); White Blood Count 7.3 K/mm3 (4.5-10.0)
[2024-11-30 08:21] LABS: Alanine Aminotransferase 54 U/L (6-35); Albumin Level 4.1 g/dL (3.5-5.1); Alkaline Phosphatase 94 U/L (38-126); Anion Gap 9 mmol/L (4-12); Aspartate Amino Transferase 39 U/L (14-36); Bilirubin,Total 0.3 mg/dL (0.2-1.3); Blood Urea Nitrogen 14 mg/dL (7-17); Calcium 9.3 mg/dL (8.4-10.2); Carbon Dioxide 23 mmol/L (22-30); Chloride 112 mmol/L (98-107); Estimated Glomerular Filt Rate 51; Glucose 114 mg/dL (65-110); Potassium 3.8 mmol/L (3.4-5.0); Sodium 144 mmol/L (137-145); Total Protein 7.2 g/dL (6.3-8.2)
== END 2024-11-30 07:05 | disposition home or self-care (01) ==
PROVIDERS: PCP Family Medicine; Visit Provider Family Medicine
DX: J45.909 Unspecified asthma, uncomplicated (principal); Z79.899 Other long term (current) drug therapy; E78.2 Mixed hyperlipidemia; E78.1 Pure hyperglyceridemia; E66.9 Obesity, unspecified; K21.9 Gastro-esophageal reflux disease without esophagitis; K76.0 Fatty (change of) liver, not elsewhere classified; G43.909 Migraine, unspecified, not intractable, without status migrainosus; J44.9 Chronic obstructive pulmonary disease, unspecified
CPT/HCPCS: 36415; 80053; 82306; 85027

== ENCOUNTER 2024-12-27 10:41 | Outpatient (CLI) | payer MEDICARE, MEDICAID, SELFPAY ==
--- NOTE | ~2024-12-27 | XR_ITS ---
[[id number] ] INDICATION: Pleurodynia TECHNIQUE: Frontal projection of the upper ribs, frontal projection of the lower ribs, oblique projec tion of all the ribs, frontal inspiratory chest x-ray for interpretation. FINDINGS: There are no displaced rib fractures identified. There are no soft tissue abnormality see n. The lungs are clear. Left basilar atelectasis. Left healed seventh and eighth rib fractures. The re are surgical changes in the pelvis partially visualized. There is a left renal stone. IMPRESSION: 1:No acute displaced rib fractures. 2:Left nephrolithiasis. Reviewed, dictated and finalized at location A.
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
--- OUTSIDE RECORDS SUMMARY | 2024-12-27 11:07 | XMS_ITS | Encounter Summary ---
Author Organization [facility] Address [address] [place] [address] Phone Care Team Providers Care Medical Technicians Name Role Phone Santana Tellez MD Primary Care Provider [phone] Encounter Details Date Type Department Care Team (Late st Contact Info) Description 12/21/2024 Results Follow-Up [facility] Obstetrics and Gynecology [address] [facility] Medicine 13th [place] [address] [place] [phone] Sharon Aragon RN Pap and High Risk HPV and Genotyping (Cytology Component) Social History Tobacco Use Types Packs/Day Years Used Date Smoking Tobacco: Former Cigarettes 0.2 20 2013 Passive Smoke Exposure: Past Smokeless Tobacco: Never Alcohol Use Standard Drinks/Week Comments No 0 [...] on file 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
--- OUTSIDE RECORDS SUMMARY | 2024-12-27 11:07 | XMS_ITS ---
Author Organization [facility] Address [address] [place] [address] Care Team Providers Care Survey Associate Name Role Phone Santana Tellez MD Primary Care Provider [phone] Active Problems Problem Noted Date Diagnosed Date [...]
--- OUTSIDE RECORDS SUMMARY | 2024-12-27 11:07 | XMS_ITS | Referral Summary ---
Author Organization [facility] Address [address] [place] [address] Care Team Providers Care Sciences Dean Name Role Phone Santana Tellez MD Primary Care Provider +1 [phone] Encounters Date Type Department Care Team Description 12/22/2024 9:23 AM CDT - 12/22/2024 11:59 PM CDT Hospital Encounter [facility] Radiology [facility] ([facility]) [address] [place] [address] Discharge Disposition: Discharge to home or self care 12/22/2024 9:23 AM CDT - 12/22/2024 11:59 PM CDT Hospital Encounter [facility] Radiology [facility] ([facility]) [address] [place] [address] Adenocarcinoma in situ (AIS) of uterine cervix Discharge Disposition: Discharge to home or self care 12/21/2024 Results Follow-Up [facility] Obstetrics and Gynecology [address] [place] [address] Advanced Medicine 13th [place] [address] [place] [address] Sharon Aragon RN Pap and High Risk HPV and Genotyping (Cytology Component) 12/13/2024 5:12 PM CDT - 12/13/2024 11:59 PM CDT Hospital Encounter [address] [address] Malignant neoplasm of cervix, unspecified site (HCC) Discharge Disposition: Discharge to home or self care 12/13/2024 3:20 PM CDT Office Visit [facility] Obstetrics and Gynecology [address] [facility] Advanced Medicine 13th [place] [address] [place] [address] Tenzin Swift MD Adenocarcinoma in situ (AIS) of uterine cervix (Primary Dx); Malignant neoplasm of cervix, unspecified site (HCC); LUQ pain; Chest pain, unspecified type from Last 3 Months Allergies Active Allergy Reactions Criticality Noted Date Comments Amoxicillin-Pot Clavulanate Anaphylaxis High Coconut Hives,Swelling,Rash Medium 07/24/2023 Penicillins Anaphylaxis High Medications amitriptyline (ELAVIL) 25 mg tabletIndications: Neuropathic Pain Take 1 tablet (25 mg total) by mouth nightly at bedtime. 03/08/20 23 Active atorvastatin (LIPITOR) 80 mg tabletIndications: hyperlipidemia Take 1 tablet (80 mg total) by mouth every morning 05/05/20 Active Aimovig Autoinjector 140 mg/mL auto-injectorIndic ations:Migraine Prevention Inject 1 mL (140 mg total) under the skin every 30 (thirty) days 05/05/20 Active famotidine (PEPCID) 40 mg tabletIndications: gastroesophageal [...] rhinitis or allergies Just got prescription from financial specialist and hasn't needed yet 06/04/19 24 Active [...] hours 15 tablet 11/24/19 24 025 Discontin ued(Laine nt Reported) Active Problems Problem Noted Date [...] Smoking Tobacco: Former Cigarettes 0.2 20 1 4 - 2013 Passive Smoke Exposure: Past Smokeless [...] on file 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 This is a high-resolution scanner, which [...] obtained. The study was interpreted on the Autogrid workstation. The total scanned area was skull [...] FDG-PET/CT IMAGING DATE OF STUDY: 12/22/2024 SCANNER: [facility] [employer] (NV1). This is a high-resolution scanner, which [...] obtained. The study was interpreted on the Autogrid workstation. The total scanned area was skull [...] was performed using the sharda HPV assay ([employer].). This report is intended for use in clinical monitoring and management of patients. It is not intended for use in medical-legal applications. This test has been modified from the as400 programmer's instructions. Its performance characteristics were determined by [facility] in a manner consistent with CLIA requirements. This test has not been cleared or approved by the U.S. Food and Drug Administration. Test Performed by: [facility] [place] [address] Mechanic Foreman: Jose Haskins Ph.D.; CLIA# [id number] HPV HR 16 vaginal Negative Negative [facility] HPV HR 18 vaginal Negative Negative [facility] Vaginal 12/13/2024 5:12 PM CDT 12/14/2024 9:32 AM CDT Narrative [facility] - 12/16/2024 12:17 AM CDT Clinical history and diagnosis->hx of cervical cancer Number of vials->1 Testing type->Diagnostic Last menstrual period (date if known)->post rad hyst Premsaige Swift MD LAB BODY FLUIDS AND STOO LS ORDERABLES [facility] [address] [facility] Department [place] [address] * (ABNORMAL) Pap and High Risk HPV and Genotyping (Cytology Component) (12/13/2024 5:12 PM CDT) Thin prep (Pap test) 12/13/2024 5:12 PM CDT 12/13/2024 7:31 PM CDT Narrative PATHOLOGY [facility] - 12/20/2024 2:30 PM CDT EPIC results best viewed via link to PDF [facility] Yojana Morelos Laboratory [place] [address] Note to Patients: This report may contain [...] Gender: F : 1970 (Age: 54) Address: [address] [place] [address] [facility] #: [id number] Service: RETAIL GREETER Location: Patient Type: [facility] SPECIMEN Taken: 12/13/2024 Received: 12/13/2024 Accessioned: 12/14/2024 [...] This test has been modified from the as400 programmer's instructions. Its performance characteristics were determined by [facility] in a manner consistent with CLIA requirements. This test has not been cleared or approved by the U.S. Food and Drug Administration. Test Performed by: [address] [address] Mechanic Foreman: Dario Soto M.D. Ph.D.; CLIA# [id number] [facility]/12/20/2024 12:38 By this signature, I attest that [...] clinical information and biopsy results as indicated. [facility] Clinical Laboratory Improvement Amendments (CLIA) mandate that cytologic and histologic results be correlated for laboratory corporate quality manager & improvement standards. FOR ALL HIGH-GRADE CASES [...] determined by the Surgical Pathology Department at [facility] as part of an ongoing quality process engineer program and in compliance with federally mandated [...] determined by the Surgical Pathology Department of [facility]. It has not been cleared or approved by the U. S. Food and Drug Administration. [facility] Colton Swift MD LAB CYTOLOGY ORDERABLES Final Result Performing Organization Address City/State/[facility] Co de Phone Number PATHOLOGY [facility] 3rd Floor [place], [place] [phone] from Last 3 Months Insurance MEDICARE [facility] Address: [address] [address] MEDICARE IDPA IDPA Advance Directives For more information, please contact: [phone] Documents on File Type Date Recorded Patient Briquetting Machine Operator Expl anation ADVANCE DIRECTIVE 10/30/2023 11:13 PM CECILIA R OF PHYSICIAN OFFICE CLIN ASST-FINANCIAL ADVANCE DIRECTIVE 10/30/2023 11:13 PM CECILIA R OF PHYSICIAN OFFICE CLIN ASST-MEDICAL * Full Code (Latest Code Status on File) Date Activated Date Inactivated Comments 11/07/2023 1:39 PM 11/12/2023 3:43 PM Care Teams Sciences Dean Relationship Specialty Start Date End Date Santana Tellez MD PCP - General Family Practice 06/09/23
--- OUTSIDE RECORDS SUMMARY | 2024-12-27 11:08 | XMS_ITS | Clinical Summary ---
Author Organization [facility] Address [facility] [place] [address] Care Team Providers Care Customer Solutions Supervisor Name Role Phone Unavailable Primary Care Provider [...]
[2024-12-27 11:57] LABS: Troponin I < 0.012 ng/mL (0.000-0.034)
== END 2024-12-27 10:42 | disposition home or self-care (01) ==
PROVIDERS: PCP Family Medicine; Visit Provider Family Medicine
DX: N20.0 Calculus of kidney (principal); R07.89 Other chest pain; R07.81 Pleurodynia
CPT/HCPCS: 36415; 71111; 84484

== ENCOUNTER 2025-03-07 10:39 | Outpatient (CLI) | payer MEDICARE, MEDICAID, SELFPAY ==
[2025-03-07 11:08] LABS: Hematocrit 41.6 % (37.0-47.0); Hemoglobin 13.7 g/dL (12.0-15.0); Immature Granulocyte Percent A 0.3 % (0-0.5); Lymphocytes Absolute Auto 2.60 K/mm3 (0.9-3.2); Mean Corpuscular HGB Conc 32.9 g/dl (32-36); Mean Corpuscular Hemoglobin 30.2 pg (26-34); Mean Corpuscular Volume 91.8 fl (80-100); Nucleated Red Blood Cells Absolute Auto 0.000 K/mm3 (0.0-0.012); Nucleated Red Blood Cells Perc 0.0 % (0.0-0.2); Platelet Count Result 249 k/mm3 (150-375); Red Blood Count 4.53 M/mm3 (4.2-5.4); White Blood Count 6.4 K/mm3 (4.5-10.0)
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
--- OUTSIDE RECORDS SUMMARY | 2025-03-07 12:08 | XMS_ITS ---
Author Organization [facility] Address [address] [place] [address] Care Team Providers Care Brushing Operator Name Role Phone Santana Tellez MD Primary Care Provider [phone] [phone] Active Problems Problem Noted Date Diagnosed Date [...]
--- OUTSIDE RECORDS SUMMARY | 2025-03-07 12:08 | XMS_ITS | Clinical Summary ---
Author Organization [facility] Address [facility] [place] [address] Care Team Providers Care Drawing Box Tender Name Role Phone Unavailable Primary Care Provider [...] COVID-19 Vaccine ( - 2023-2 5 season) 2025 Meningococcal B Vaccine Aged Out No l onger eligible based on patient's age to complete this topic Meningococcal Vaccine Aged Out No amanda oscar eligible based on patient's age to complete this topic RSV Immunizations Under 20 Months Aged Out No longer eligible based on patient's age to complete this topic
== END 2025-03-07 10:40 | disposition home or self-care (01) ==
PROVIDERS: PCP Family Medicine; Visit Provider Internal Medicine Critical Care Medicine
DX: J45.909 Unspecified asthma, uncomplicated (principal)
CPT/HCPCS: 36415; 85025

== ENCOUNTER 2025-03-25 07:48 | Outpatient (CLI) | payer MEDICARE, MEDICAID, SELFPAY ==
--- OUTSIDE RECORDS SUMMARY | 2025-03-25 07:53 | XMS_ITS ---
Author Organization [facility] Address [address] [place] [address] Care Team Providers Care Wind Up Worker Name Role Phone Santana Tellez MD Primary Care Provider [phone] [phone] Active Problems Problem Noted Date Diagnosed Date [...]
--- OUTSIDE RECORDS SUMMARY | 2025-03-25 07:53 | XMS_ITS | Clinical Summary ---
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 Gender Identity Not on file Sexual Orientation [...] Procedure Name Priority Date/Time Associated Diagnosis Comments PAP AND HIGH RISK HPV, REFLEX TO GENOTYPING Routine 12/13/2024 5:12 PM CDT Malignant neoplasm of cervix, unspecified site (HCC) from Last 3 Months or Most Recently Relevant to Health Maintenance Results * (ABNORMAL) Pap and High Risk HPV and Genotyping (Cytology Component) (12/13/2024 5:12 PM CDT) Thin prep (Pap test) 12/13/2024 5:12 PM CDT 12/13/2024 7:31 PM CDT Narrative PATH[facility]Y [facility] - 12/20/2024 2:30 PM CDT EPIC results best viewed via link to PDF [facility] Yojana Morelos Laboratory [place] [address] Note to Patients: This report may contain [...] the details. CYTOPATHOLOGY REPORT FINAL Patient Name: RODERICK JACKSON Gender: F : 1970 (Age: 54) Address: [address] [place] [address] Hospital #: [id number] Service: INTERIOR DECORATOR Location: Patient Type: [facility] SPECIMEN Taken: 12/13/2024 Received: 12/13/2024 Accessioned: [...] performed using the sharda HPV assay (Prasad [employer] This test has been modified from the iuss analyst's instructions. Its performance characteristics were determined by [facility] in a manner consistent with CLIA requirements. This test has not been cleared or approved by the U.S. Food and Drug Administration. Test Performed by: [facility] - [address] [address] Piano Tuner: Dario Soto M.D. Ph.D.; CLIA# [id number] [facility]/12/20/2024 12:38 By this signature, I attest that the above diagnosis is based upon my personal examination of the slides(and/or other material indicated in the diagnosis). Rian Coto M.D. Report Electronically Reviewed and Signed Out By Rian Coto M.D. 12/20/2024 14:30:45 KAARN Morelos(ASCP) Cervicovaginal Cytology (Pap Test) Disclaimer: The Pap test is a screening test used to detect cervical cancer and its precursors; it is not a diagnostic procedure. False negative and false positive results do occur. Pap test results should be interpreted in the context of pertinent clinical information and biopsy results as indicated. [facility] Clinical Laboratory Improvement Amendments (CLIA) mandate that cytologic and histologic results be correlated for laboratory senior quality engineer & improvement standards. FOR ALL [...] determined by the Surgical Pathology Department at [facility] as part of an ongoing senior quality engineer program and in compliance with federally [...] determined by the Surgical Pathology Department of [facility]. It has not been cleared or approved by the U. S. Food and Drug Administration. Premal Colton Swift MD LAB CYTOLOGY ORDERABLES Final Result PATHOLOGY [facility] 3rd Floor [place], [place] [phone] from Last 3 Months or Most Recently Relevant to Health Maintenance Insurance MEDICARE MEDICARE [facility] IDPA Advance Directives For more information, please contact: [phone] Documents on File Type Date Recorded Patient Scientific Informatics Leader Expl anation ADVANCE DIRECTIVE 10/30/2023 11:13 PM CECILIA R OF [employer]ESE [employer]-FINANCIAL ADVANCE DIRECTIVE 10/30/2023 11:13 PM CECILIA R OF [employer]-MEDICAL * Full Code (Latest Code Status on File) Date Activated Date Inactivated Comments 11/07/2023 1:39 PM 11/12/2023 3:43 PM Care Teams Oven Press Tender Relationship Specialty Start Date End Date Santana Tellez MD PCP - General Family Practice 06/09/23
--- OUTSIDE RECORDS SUMMARY | 2025-03-25 07:53 | XMS_ITS | Clinical Summary ---
Author Organization [facility] Address [facility] [place] [address] Care Team Providers Care Administrative Personal Assistant Name Role Phone Unavailable Primary Care Provider [...] Vaccine ( - 2023-2 5 season) 2025 Influenza Adult (#1) 2025 Hepatitis A Vaccines Aged Out No long er eligible based on patient's age to complete this topic Meningococcal B Vaccine Aged Out No l onger eligible based on patient's age to complete this topic Meningococcal Vaccine Aged Out No amanda oscar eligible based on patient's age to complete this topic RSV Immunizations Under 20 Months Aged Out No longer eligible based on patient's age to complete this topic
--- NOTE | 2025-03-25 08:38 | ECG_ITS ---
Test Date: 2025-03-25 08:43:41 Measurements Intervals [place] Rate: 85 P: 48 CO: 184 QRS: -10 QRSD: 74 T: 24 QT: 373 QTc: 445 Interpretive Statements SINUS RHYTHM LOW QRS VOLTAGE IN PRECORDIAL LEADS POSSIBLE RIGHT VENTRICULAR CONDUCTION DELAY BORDERLINE ECG No previous ECG available for comparison Electronically Signed On 03-25-2025 08:46:01 CDT by Caden Rodriguez D.O.
--- NOTE | 2025-04-27 12:52 | WPDPFTINT ---
PFT Procedure Performed PFT Procedure Performed Spirometry with Pre/Post Bronchodilator Plethysmography (Lung Vol) Diffusing Cap (DLCO) Flow Vol Loop PFT Interpretation DOS: 03/25/2025 REQUESTING: Yareli Tellez MD REASON FOR TESTING: shortness of breath PULMONARY FUNCTION TESTS Results are reliable and reproducible. Repeatability of spirometry FEV1 maneuver pre and post bronchodilator is Grade A. The patient was only able to perform 1 plethysmography maneuver despite coaching and 3 attempts. Plethysmography is the portion of the test measuring lung volumes. Mason: GLI 2012 reference equations were used. Spirometry: The pre-bronchodilator FEV1 is 2.53 L, 94%. The pre-bronchodilator FVC is 3.39 L, 100%. The FEV1/FVC ratio is 75%. After bronchodilator, the FEV1 is 2.60 L, 97%, +3. After bronchodilator, the FVC is 3.32 L, 98%, -2. The FEV1/FVC ratio is 78%. Lung volumes: The total lung capacity is 5.47 L, 105%. The residual volume is 2.08 L, 106%. The RV/TLC is 38%. The functional reserve capacity is 2.92 L, 100%. Airway resistance is normal. Diffusion: DLCO is 14.3, 84%, mildly reduced. The DLCO/VA is 4.19, 94%, normal. Flow volume loop: The flow volume loop shows truncation in the latter portion of the inspiratory limb. The expiratory limb has a knee which is a normal variant. IMPRESSION: This study shows normal spirometry without airflow obstruction, no response to bronchodilator administration, normal lung volumes, mild diffusion impairment which corrects for alveolar volume. Compared to a PFT on 01/29/2021, current values are improved. She was not able to perform reproducible maneuvers in 2020. The FEV1 was 2.22 L, 79%, now 2.53 L, 94%. FVC was 3.10 L, 88%, now 3.39 L, 100%. No airflow obstruction was present. There was no response to bronchodilator. The total lung capacity was below normal, 3.93 L, 76%. On the current study, total lung capacity is normal, 5.47 L, 105%. DLCO was similar, was 14.7, 54%, and DLCO was 3.48, 77%. Fow volume loops were not interpretable. Beth Sandoval MD
--- NOTE | 2025-04-27 13:11 | WPDSIXMINUTE ---
Six Minute Walk Procedure Procedure Performed Pulmonary Stress Test (6 min walk) Six Minute Walk Six Minute Walk: DATE OF SERVICE: 03/25/2025 REQUESTING: Yareli Tellez MD REASON FOR TESTING: shortness of breath SIX MINUTE WALK This test was conducted per ATS guidelines. The patient walked without a walking aid breathing room air. The initial saturation was 99%, and initial heart rate was 91 bpm. The patient walked without stopping, completing 243.8 m/800 feet. The saturation at the end of testing was 98%, and the heart rate was 89 bpm. The Carlita score for fatigue and dyspnea was 3 initially, and 7 at the end of testing. The lowest saturation during testing was was 93% after the 3rd lap. At the end of the test, the patient had dizziness and chest discomfort. IMPRESSION: This is a normal study. The patient did not require supplemental oxygen with exertion. Beth Sandoval MD
== END 2025-03-25 07:49 | disposition home or self-care (01) ==
PROVIDERS: PCP Family Medicine; Visit Provider Internal Medicine Critical Care Medicine
DX: R94.31 Abnormal electrocardiogram [ECG] [EKG] (principal); R07.89 Other chest pain; R06.02 Shortness of breath
CPT/HCPCS: 93005; 94060; 94618; 94726; 94729